=== PATIENT | female | born 1935 | race Caucasian/White ===

== ENCOUNTER 2016-08-17 16:27 | Emergency (ER) | payer MEDICARE, BC ==
[2016-08-17 16:41] VITALS: BP 127/87
[2016-08-17] MEDS ORDERED: Sodium Chloride 0.9% 500 ML IV ONE (16:59)
[2016-08-17] MEDS ORDERED: Ondansetron 4 MG/2 ML SDV IVPUSH ONE (16:59)
[2016-08-17] MEDS ORDERED: cefTRIAXone 1 GM in Sodium Chloride 0.9% 100 ML IV ONE (18:41)
[2016-08-17] MEDS ORDERED: LORazepam 0.5 MG Tab PO ONE (18:41)
--- NOTE | 2016-08-17 19:01 | EDM.PDOC ---
ED HPI RENAL/ - General Chief Complaint: Genitourinary Problem Stated Complaint: URINARY INFECTION WORSE Time Seen by Provider: 08/17/16 16:44 Source of Information: Reports: Patient, Family (Chidi), RN notes reviewed - History of Present Illness INITIAL COMMENTS - FREE TEXT/NARRATIVE: 80-year-old lady comes in with left lower abdominal and pelvic discomfort with some radiation to the left flank. she had onset of these symptoms 2 or 3 days ago. He has history of the left kidney stone with lithotripsy several weeks ago. She was told by the urologist that he got some of the stone but not "all of it" she was evaluated at [facility] yesterday and found to have UTI. She was started on Levaquin 750 mg daily with her first dose yesterday. She's had no fever or chills. She did have some mild nausea this afternoon but no vomiting. No chest pain or difficulty breathing. - Related Data Allergies/ADRs: Allergies Allergy/AdvReac Type Severity Reaction Status Date / Time Sulfa (Sulfonamide Allergy Cannot Verified 08/17/16 16:41 Antibiotics) Remember buspirone HCl [From BuSpar] AdvReac Mild Insomnia Verified 08/17/16 16:41 contrast dye Allergy Cannot Uncoded 08/17/16 16:41 Remember tape Allergy Cannot Uncoded 08/17/16 16:41 Remember Home Meds: Home Meds 5-Hydroxytryptophan [5-Htp] 2 cap PO DAILY 10/08/15 [History] Aspirin [Ecotrin] 325 mg PO DAILY 10/08/15 [History] Cholecalciferol (Vitamin D3) [Vitamin D] 2,000 units PO DAILY 10/08/15 [History] Denosumab [Prolia] 60 mg INJECT Q6M 10/08/15 [History] Levothyroxine 125 mcg PO DAILY 10/08/15 [History] Magnesium Hydroxide [Milk of Magnesia] 30 ml PO DAILY PRN 10/08/15 [History] Oscal 1,500 mg PO DAILY 10/08/15 [History] Sertraline HCl [Zoloft] 150 mg PO DAILY 10/08/15 [History] oxyCODONE HCl/Acetaminophen [oxyCODONE-Acetaminophen 5-325] 1 - 2 mg PO QID PRN 08/17/16 [History] Past Medical History Genitourinary History: Reports: Renal calculus Musculoskeletal History: Reports: Other (see below) Other Musculoskeletal History: kyphoplasty. 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 Psychiatric History: Reports: Anxiety, Depression Endocrine/Metabolic History: Reports: Hypothyroidism, Osteoporosis Dermatologic History: Reports: Eczema - Past Surgical History HEENT Surgical History: Reports: Cataract surgery GI Surgical History: Reports: Appendectomy Female Surgical History: Reports: Lithotripsy/ESWL, Tubal ligation Social & Family History - Tobacco Use Smoking Status *Q: Current Every Day Smoker Years of Tobacco use: 50 Packs/Tins Daily: 0.5 - Caffeine Use Caffeine Use: Reports: Coffee - Recreational Drug Use Recreational Drug Use: No - Living Situation & Occupation Living situation: Reports: Occupation: retired ED ROS GENERAL - Review of Systems Review Of Systems: See Below Constitutional: Denies: fever, chills, diaphoresis HEENT: Reports: No symptoms Respiratory: Denies: Shortness of Breath, Pleuritic Chest Pain Cardiovascular: Denies: Chest pain GI/Abdominal: Reports: Abdominal pain (Mild left-sided), Nausea (Gone). Denies : Vomiting : Reports: flank pain, frequency, urgency. Denies: dysuria Musculoskeletal: Reports: back pain (Primarily left flank) Skin: Reports: no symptoms Neurological: Reports: Dizziness (Mild) ED EXAM, RENAL/ - Physical Exam Exam: See Below General Appearance: alert, anxious (Mild), mild distress Eye Exam: bilateral eye: PERRL Throat/Mouth: Normal inspection, Normal oropharynx Head: No: facial swelling Neck: supple, full range of motion. No: lymphadenopathy (L), lymphadenopathy (R ) Respiratory/Chest: no respiratory distress, lungs clear, normal breath sounds Cardiovascular: regular rate, rhythm GI/Abdominal: tender (Very mild tenderness left lower abdomen). No: guarding, rebound Back Exam: No: CVA tenderness (L), CVA tenderness (R) Extremities: normal inspection, normal range of motion. No: pedal edema, leg pain Neurological: alert, oriented, no motor/sensory deficits Skin Exam: Warm, Dry, Normal color Course - Vital Signs Last Recorded V/S: Last Vital Signs Temp 96.4 F 08/17/16 16:35 Pulse 75 08/17/16 16:35 Resp 18 08/17/16 16:35 BP 127/87 05/06/17 16:35 Pulse Ox 98 08/17/16 16:35 - Orders/Labs/Meds Orders: Active Orders 24 hr Category Date Time Status CULTURE URINE [RM] Stat Lab 08/17/16 17:17 Received Labs: Laboratory Tests 08/17/16 08/17/16 08/17/16 Range/Units 17:09 17:09 17:09 WBC 5.30 (3.98-10.04) K/mm3 RBC 4.28 (3.98-5.22) M/mm3 Hgb 13.6 (11.2-15.7) gm/L Hct 40.8 (34.1-44.9) % MCV 95.3 H (79.4-94.8) fl MCH 31.8 (25.6-32.2) pg MCHC 33.3 (32.2-35.5) g/dl RDW Std Deviation 45.6 (36.4-46.3) fL Plt Count 254 (182-369) K/mm3 MPV 11.0 (9.4-12.3) fl Neut % (Auto) 60.9 (34.0-71.1) % Lymph % (Auto) 27.9 (19.3-51.7) % [place] % (Auto) 7.7 (4.7-12.5) % Eos % (Auto) 2.5 (0.7-5.8) Baso % (Auto) 0.8 (0.1-1.2) % Neut # (Auto) 3.23 (1.56-6.13) K/mm3 Lymph # (Auto) 1.48 (1.18-3.74) K/mm3 [place] # (Auto) 0.41 H (0.24-0.36) K/mm3 Eos # (Auto) 0.13 (0.04-0.36) K/mm3 Baso # (Auto) 0.04 (0.01-0.08) K/mm3 Sodium 139 (136-145) mEq/L Potassium 3.6 (3.5-5.1) mEq/L Chloride 106 (98-107) mEq/L Carbon Dioxide 24 (21-32) mEq/L Anion Gap 12.6 (5-15) BUN 12 (7-18) mg/dL Creatinine 0.9 (0.55-1.02) mg/dL Est Cr Clr Drug Dosing 44.28 mL/min Estimated GFR (MDRD) > 60 (>60) mL/min BUN/Creatinine Ratio 13.3 L (14-18) Glucose 106 (83-115) mg/dL Calcium 9.0 (8.5-10.1) mg/dL Total Bilirubin 0.3 (0.2-1.0) mg/dL AST 10 L (15-37) U/L ALT 17 (14-59) U/L Alkaline Phosphatase 79 (46-116) U/L C-Reactive Protein 1.0 (<1.0) mg/dL Total Protein 7.4 (6.4-8.2) g/dl Albumin 3.2 L (3.4-5.0) g/dl Globulin 4.2 gm/dL Albumin/Globulin Ratio 0.8 L (1-2) Urine Color (Yellow) Urine Appearance (Clear) Urine pH (5.0-8.0) Ur Specific [place] (1.005-1.030) Urine Protein (Negative) Urine Glucose (UA) (Negative) Urine Ketones (Negative) Urine Occult Blood (Negative) Urine Nitrite (Negative) Urine Bilirubin (Negative) Urine Urobilinogen (0.2-1.0) Ur Leukocyte Esterase (Negative) Urine RBC (0-5) /hpf Urine WBC (0-5) /hpf Ur Epithelial Cells Ur Squamous Epith Cells (0-5) /hpf Urine Bacteria (FEW) /hpf Urine Mucus (FEW) /hpf 08/17/16 Range/Units 17:17 WBC (3.98-10.04) K/mm3 RBC (3.98-5.22) M/mm3 Hgb (11.2-15.7) gm/L Hct (34.1-44.9) % MCV (79.4-94.8) fl MCH (25.6-32.2) pg MCHC (32.2-35.5) g/dl RDW Std Deviation (36.4-46.3) fL Plt Count (182-369) K/mm3 MPV (9.4-12.3) fl Neut % (Auto) (34.0-71.1) % Lymph % (Auto) (19.3-51.7) % [place] % (Auto) (4.7-12.5) % Eos % (Auto) (0.7-5.8) Baso % (Auto) (0.1-1.2) % Neut # (Auto) (1.56-6.13) K/mm3 Lymph # (Auto) (1.18-3.74) K/mm3 [place] # (Auto) (0.24-0.36) K/mm3 Eos # (Auto) (0.04-0.36) K/mm3 Baso # (Auto) (0.01-0.08) K/mm3 Sodium (136-145) mEq/L Potassium (3.5-5.1) mEq/L Chloride (98-107) mEq/L Carbon Dioxide (21-32) mEq/L Anion Gap (5-15) BUN (7-18) mg/dL Creatinine (0.55-1.02) mg/dL Est Cr Clr Drug Dosing mL/min Estimated GFR (MDRD) (>60) mL/min BUN/Creatinine Ratio (14-18) Glucose (83-115) mg/dL Calcium (8.5-10.1) mg/dL Total Bilirubin (0.2-1.0) mg/dL AST (15-37) U/L ALT (14-59) U/L Alkaline Phosphatase (46-116) U/L C-Reactive Protein (<1.0) mg/dL Total Protein (6.4-8.2) g/dl Albumin (3.4-5.0) g/dl Globulin gm/dL Albumin/Globulin Ratio (1-2) Urine Color Light yellow (Yellow) Urine Appearance Slt cloudy H (Clear) Urine pH 6.5 (5.0-8.0) Ur Specific [place] 1.010 (1.005-1.030) Urine Protein 1+ H (Negative) Urine Glucose (UA) Negative (Negative) Urine Ketones Negative (Negative) Urine Occult Blood 3+ H (Negative) Urine Nitrite Negative (Negative) Urine Bilirubin Negative (Negative) Urine Urobilinogen 0.2 (0.2-1.0) Ur Leukocyte Esterase 2+ H (Negative) Urine RBC 10-20 H (0-5) /hpf Urine WBC 30-40 H (0-5) /hpf Ur Epithelial Cells Not Reportable Ur Squamous Epith Cells 0-5 (0-5) /hpf Urine Bacteria Moderate H (FEW) /hpf Urine Mucus Few (FEW) /hpf Meds: Medications Discontinued Medications Generic Name Dose Route Start Last Admin Trade Name Keli PRN Reason Stop Dose Admin Sodium Chloride 500 mls @ 999 mls/hr 08/17/16 16:59 08/17/16 17:16 Normal Saline IV 08/17/16 17:29 999 mls/hr .BOLUS ONE Administration Ceftriaxone Sodium 1 gm/ 100 mls @ 200 mls/hr 08/17/16 18:41 08/17/16 18:59 Sodium Chloride IV 08/17/16 19:10 200 mls/hr ONETIME ONE Administration Lorazepam 0.5 mg 08/17/16 18:41 08/17/16 19:01 Ativan PO 08/17/16 18:42 0.5 mg ONETIME ONE Administration Ondansetron HCl 4 mg 08/17/16 16:59 08/17/16 17:18 Zofran IVPUSH 08/17/16 17:00 4 mg ONETIME ONE Administration - Re-Assessments/Exams Free Text/Narrative Re-Assessment/Exam: 08/17/16 18:59 White blood count and C-reactive protein are normal, chemistries are good. UA does show evidence for UTI to did check with our lab and they did not have a urine culture going so [place] is doing the urine culture within their system. I did order a urine culture today as well just to make sure we have that covered. We have given some IV fluid. The given Zofran and with that patient is resting more comfortably. She continues to be somewhat anxious and restless. She has been on Ativan for quite some time in the past and recently tapered off. I am going to give her 0.5 mg dose now to try help her better relax. We' re going to give her a dose of Rocephin 1 g IV now. She then should be stable for discharge home. She has a followup clinic appointment scheduled for Friday. Departure - Departure Time of Disposition: 19:30 Disposition: Home, Self-Care 01 Condition: fair Clinical Impression: UTI, Urinary tract infectious disease Referrals: Loida Williamson, [employer] [Primary Care Provider] - Forms: ED Department Discharge Additional Instructions: Drink plenty of water to maintain hydration, continue Levaquin antibiotic as prescribed once daily, see Dr. Williamson this next Friday as planned. Continue other medications as prescribed. Return to ED as needed if symptoms worsening in any way - My Orders Last 24 Hours: My Active Orders 08/17/16 17:17 CULTURE URINE [RM] Stat - Assessment/Plan Last 24 Hours: My Active Orders 08/17/16 17:17 CULTURE URINE [RM] Stat
== END 2016-08-17 19:50 | disposition home or self-care (01) ==
LOC: JD.ED 16:27
DX: N39.0 Urinary tract infection, site not specified (principal); F41.9 Anxiety disorder, unspecified; F32.9 Major depressive disorder, single episode, unspecified; E03.9 Hypothyroidism, unspecified; F17.210 Nicotine dependence, cigarettes, uncomplicated; Z88.2 Allergy status to sulfonamides; Z88.8 Allergy status to other drugs, medicaments and biological substances; Z79.82 Long term (current) use of aspirin; Z79.899 Other long term (current) drug therapy; Z90.49 Acquired absence of other specified parts of digestive tract
CPT/HCPCS: 36415; 80053; 81001; 85025; 86140; 87086; 96361; 96365; 96375; 99284; A9270; J0696; J2405; J7030; J7040

== ENCOUNTER 2016-09-18 06:55 | Day surgery (SDC) | payer MEDICARE, BC ==
--- NOTE | 2016-09-18 05:43 | PCM.HP ---
H&P History of Present Illness - General Date of Service: 09/18/16 Admit Problem/Dx: asymptomatic cholelithiasis, chronic constipation, hx of hemorrhoids, chronic LUQ/flank pain, no prior hx of colonoscopy, hx of: nausea, vomiting, lower abdominal pain, hx of abdominal distension Source of Information: Patient History Limitations: Reports: No Limitations - History of Present Illness Initial Comments - Free Text/Narative: The patient is a 80-year-old female initially referred by Dr. Luci Williamson for cholelithiasis ill defined signs and symptoms. I last saw the patient on 07/03/16. She reports no major changes to her health since that visit, with the exception of below healthcare visits. she did complete the prep as prescribed. She reports she had a liquid brown stool this am. She denies abdominal pain this am. Feels it is improved. No diarrhea post multiple antibiotic courses. Still has LUQ pain. Continues to deny RUQ pain. Feels bloating may be better. No reflux/heartburn. Nausea and vomiting only once since last visit. Hx of fatigue. Reports hemorrhoids are still bothering her, difficulty sitting and they do itch. She has since had urology and cardiology evaluations. 07/11 Cardiology visit-Dr. Morrison did note on "The patient's symptoms are likely related to hypothyroidism; however, she has significant risk factors for coronary artery disease to include hypertension, his age, dyslipidemia and on elevated calcium score. I'll obtain a nuclear stress test to evaluate for possible ischemic etiology of her symptoms.Lexiscan nuclear stress test. One year follow up advised. 07/31/16 Left extracorporeal shockwave lithotripsy, Cystoscopy and left retrograde pyelogram and stent insertion 08/20/16 Patient did have a preoperative evaluation with Dr. Williamson. Dr. Williamson did comment, "Please note that patient has been advised to have a nuclear stress test by cardiology- she has failed to do this.She is currently pain free and there is no indication by exam or history of any acute change in coronary status."Her EKG was repeated on 08/20. She had a borderline ECG, sinus bradycardia, borderline prolonged NM interval, left axis deviation, abnormal R wave progression, early transition 08/21/16 Left Ureteroscopy Laser Lithotripsy and stent placement. She did have with surgeries above without complication 09/04/16 Cystoscopy with left uretral stent removal She has had multiple UTIs since July. Early July did grow out Staphylococcus epidermidis, she was treated with Vancomycin. 08/16 was treated with Levaquin, culture grew out mixed Microflora. Was given Cipro post stent removal on 09/04 She was initially referred for cholelithiasis. She did not have RUQ pain, s/s of acute cholecystitis or biliary obstruction. She was also evaluated on 06/05, her CBC was unremarkable. BMP and hepatic function panel showed no electrolyte abnormalities. Bilirubin was normal. Liver enzymes were normal. Protein was slightly elevated at 8.4. She had pending evaluations with cardiology and urology. 07/03/16- CBC, Hepatic function and metabolic panel were normal. Her abdominal xray was also normal, she had a normal gas pattern, no increased stool. She should start Miralax daily. Use Senna-S as needed and utilize the hemorrhoid care methods discussed in office. Increase fluid and fiber daily. May use Gas X for bloating. PTH and vitamin D were normal, as well. Prior radiology evaluations: 05/2016: Pet scan: IMPRESSION: Stable pulmonary nodules since 2012 should be benign given its size and lack of FDG uptake. 05/30/16 CT of abdomen: 1. Multiple nonobstructing left-sided renal parenchymal calculi. The largest measures up to 1.2 cm in the left upper pole. There is associated underlying renal parenchymal scarring. 2. No evidence of ureteral calculi. 3. Cholelithiasis. 4. 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 06/2016 CTA: IMPRESSION: Mild dilatation of the abdominal aorta just distal to the takeoff of the renal arteries. 07/03/16-Abdominal ultrasoundFINDINGS: 2.9-cm simple left renal cyst. The spleen , kidneys, pancreas, and liver are otherwise normal. There is appropriate caliber to the IVC and aorta. Gallbladder has normal wall thickness with cholelithiasis. Portal and hepatic veins are patent with antegrade flow on color flow Doppler. The common bile duct is seen with appropriate caliber.IMPRESSION: Cholelithiasis with no sonographic evidence of cholecystitis.~ - Related Data Allergies/Adverse Reactions: Allergies Allergy/AdvReac Type Severity Reaction Status Date / Time adhesive tape Allergy Cannot Verified 09/18/16 07:27 Remember Iodinated Contrast Media - Allergy Cannot Verified 09/18/16 07:27 Oral and Remember Sulfa (Sulfonamide Allergy Cannot Verified 09/18/16 07:27 Antibiotics) Remember buspirone HCl [From BuSpar] AdvReac Mild Insomnia Verified 09/18/16 07:27 Home Medications: Home Meds 5-Hydroxytryptophan [5-Htp] 100 mg PO DAILY 10/08/15 [History] Aspirin [Ecotrin] 325 mg PO DAILY 10/08/15 [History] Denosumab [Prolia] 60 mg INJECT Q6M 10/08/15 [History] Levothyroxine 125 mcg PO DAILY 10/08/15 [History] Magnesium Hydroxide [Milk of Magnesia] 30 ml PO DAILY PRN 10/08/15 [History] Sertraline HCl [Zoloft] 150 mg PO DAILY 10/08/15 [History] Calcium Carbonate 500 mg PO DAILY 09/17/16 [History] Cetirizine [ZyrTEC] 10 mg PO ASDIRECTED 09/17/16 [History] Cholecalciferol (Vitamin D3) [Vitamin D3] 2,000 units PO DAILY 09/17/16 [History ] Estradiol [Estrace 0.01% Vaginal Crm] 1 applic VAG ASDIRECTED 09/17/16 [History] LORazepam [Ativan] 0.5 mg PO ASDIRECTED 09/17/16 [History] Lidocaine 2% [Xylocaine 2% Jelly] 1 applic TOP ASDIRECTED 09/17/16 [History] Pramoxine HCl [Sarna Sensitive] 1 applic TOP ASDIRECTED 09/17/16 [History] Sennosides/Docusate Sodium [Senna-Docusate Sodium] 1 - 2 tab PO ASDIRECTED 09/17 [History] Triamcinolone Acetonide [Triamcinolone Acetonide 0.1% Crm] 1 applic TOP ASDIRECTED 09/17/16 [History] Past Medical History HEENT History: Reports: Impaired Vision, Other (See Below) Other HEENT History: corneal ulcer, wears glasses Cardiovascular History: Reports: High Cholesterol, Hypertension, Other (See Below) Other Cardiovascular History: splenic artery anurysm Respiratory History: Reports: Other (See Below) Other Respiratory History: pulmonary nodules Gastrointestinal History: Reports: Cholelithiasis, Chronic Constipation, Hemorrhoids, Other (See Below) Other Gastrointestinal History: LUQ pain, nausea/vomiting, lower abdominal pain Genitourinary History: Reports: Renal Calculus, Urinary Incontinence 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 Musculoskeletal History: Reports: Back Pain, Chronic, Fibromyalgia, Osteoporosis , Other (See Below) Other Musculoskeletal History: degnerative joint disease Neurological History: Reports: None Psychiatric History: Reports: Anxiety, Depression, Other (See Below) Other Psychiatric History: fatigue Endocrine/Metabolic History: Reports: Hypothyroidism, Osteoporosis Hematologic History: Reports: Other (See Below) Other Hematologic History: pancytopenia Immunologic History: Reports: None Oncologic (Cancer) History: Reports: None Dermatologic History: Reports: Eczema, Other (See Below) Other Dermatologic History: atypical nevus - Past Surgical History HEENT Surgical History: Reports: Cataract Surgery GI Surgical History: Reports: Appendectomy, Colonoscopy Female Surgical History: Reports: Hysterectomy, Lithotripsy/ESWL, Tubal Ligation Endocrine Surgical History: Reports: Parathyroidectomy Musculoskeletal Surgical History: Reports: Other (See Below) Other Musculoskeletal Surgeries/Procedures:: kyphoplasty Social & Family History - Tobacco Use Smoking Status *Q: Current Every Day Smoker Years of Tobacco use: 50 Packs/Tins Daily: 0.5 - Caffeine Use Caffeine Use: Reports: Coffee - Recreational Drug Use Recreational Drug Use: No - Living Situation & Occupation Living situation: Reports: Occupation: Retired H&P Review of Systems - Review of Systems: Review Of Systems: See Below Free Text/Narrative: Denies any exertional chest pain. Has exertional shortness of breath. No history of any easy bleeding or bruising. No personal or familial history of clotting or bleeding disorders. No history of anesthetic complications. No history of familial anesthetic complications. Denies presence/history of chest pain, palpitations, lower extremity edema, dyspnea, orthopnea, claudication, wheezing, obstructive sleep apnea, chronic cough. Had a cough x 3 weeks, when I last saw her. Rare cough now. Is feeling better. No history of blood thinner use. History of anemia. No history of seizure or stroke. EKG 2007: Normal sinus rhythm Patient has been referred to cardiology for elevated CT heart score. CT heart score: FINDINGS: Patient gets a score of 157 by the Agatston method. That would put the patient at approximately the 60th percentile for asymptomatic females. 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 Patient has been referred to pulmonology for abnormal CT lung screening , hx of smoking. PET scan IMPRESSION: Stable pulmonary nodules since 2013 should be benign given its size and lack of FDG uptake Patient has been referred to urology for left renal calculi Patient seen [facility] for splenic artery aneurysm. Dr. Nunez noted a " calcified splenic artery aneurysm measuring 1.5 cm. It is not large enough to require any therapy, especially in someone of her age since she is past childbearing age. As far as her fatigue, I think some of that could be caused by her chronic Ativan use. I recommended that she taper that off with the help of Dr. Williamson. Her chronic aches may be related to another parathyroid adenoma as that is one of the symptoms. I recommend she get her parathyroid level checked. We will see her back in [place] in [address] to follow her splenic artery aneurysm" Also commented, " multiple complaints including fatigue, kidney stones, splenic artery aneurysm, and gallstones. I told her we were here to evaluate her splenic artery aneurysm today. She has not had any pain related to that. She has chronic aches and pains in her left back. This is not related to her splenic artery aneurysm. She does have a left kidney stone that is large. This may or may not be contributing to her left back flank pain. She also is obsessed with her chronic tiredness. She is on Ativan around the clock. I suggested that, that may be why she is so tired and the fact that she does not do any exercise. She does have a history of fibromyalgia as well. " All other systems reviewed and were negative except as per history of present illness General: Reports: No Symptoms. Denies: Fever, Chills HEENT: Reports: No Symptoms Pulmonary: Reports: No Symptoms. Denies: Shortness of Breath, Cough Cardiovascular: Reports: No Symptoms. Denies: Chest Pain, Palpitations, Edema Gastrointestinal: Reports: Other (see hpi) Genitourinary: Reports: No Symptoms Musculoskeletal: Reports: No Symptoms Skin: Reports: No Symptoms Psychiatric: Reports: No Symptoms Neurological: Reports: No Symptoms Hematologic/Lymphatic: Reports: No Symptoms Immunologic: Reports: No Symptoms Exam - Exam Exam: See Below - Vital Signs Weight: 55.338 kg - Exam General: Alert, Oriented HEENT: Conjunctiva Clear. No: Scleral Icterus Lungs: Clear to Auscultation, Normal Respiratory Effort Cardiovascular: Regular Rate, Regular Rhythm, Normal S1, Normal S2. No: Systolic Murmur, Diastolic Murmur Abdomen: Soft. No: Distention, Tenderness Back Exam: Normal Inspection Extremities: Normal Inspection. No: Clubbing, Cyanosis, Calf Tenderness, Edema Skin: Warm, Dry, Intact Neuro Extensive - Mental Status: Alert, Oriented x3, Normal Mood/Affect, Normal Cognition Psychiatric: Alert, Normal Affect, Normal Mood *Q Meaningful Use (ADM) - VTE *Q VTE Criteria *Q: - Stroke *Q Stroke Criteria *Q: - AMI *Q AMI Criteria *Q: - Problem List (1) Chronic constipation SNOMED Code(s): 857426022 ICD Code: K59.09 - OTHER CONSTIPATION Status: Acute Current Visit: Yes (2) Hemorrhoids SNOMED Code(s): 04909345 ICD Code: K64.9 - UNSPECIFIED HEMORRHOIDS Status: Acute Current Visit: Yes (3) Chronic LUQ pain SNOMED Code(s): 275796897 ICD Code: R10.12 - LEFT UPPER QUADRANT PAIN; G89.29 - OTHER CHRONIC PAIN Status: Acute Current Visit: Yes (4) Nausea & vomiting SNOMED Code(s): 87465391 ICD Code: R11.2 - NAUSEA WITH VOMITING, UNSPECIFIED Status: Acute Current Visit: Yes (5) Lower abdominal pain SNOMED Code(s): 46060596 ICD Code: R10.30 - LOWER ABDOMINAL PAIN, UNSPECIFIED Status: Acute Current Visit: Yes (6) Bloating SNOMED Code(s): 185067661 ICD Code: R14.0 - ABDOMINAL DISTENSION (GASEOUS) Status: Acute Current Visit: Yes Problem List Initiated/Reviewed/Updated: Yes Orders Last 24hrs: Active Orders 24 hr Category Date Time Status Peripheral IV Care [RC] . DIRECTED Care 09/18/16 07:00 Active Verify Patient Consent Obtain [RC] ASDIRECTED Care 09/18/16 07:00 Active Lactated Ringers [Ringers, Lactated] 1,000 ml Med 09/18/16 07:00 Active IV ASDIRECTED Lidocaine 1%/Sod Bicarbonate [Buffered Lidocaine 1% in Med 09/18/16 07:00 Active NS 8.4%] 0.25 ml .XX ONETIME PRN Sodium Chloride 0.9% [Saline Flush] Med 09/18/16 07:00 Active 10 ml FLUSH ASDIRECTED PRN Medication Administration Instruction [OM.PC] Routine Oth 09/18/16 07:00 Ordered Peripheral IV Insertion Adult [OM.PC] Routine Oth 09/18/16 07:00 Ordered Medication Orders Lactated Ringer's (Ringers, Lactated) 1,000 mls @ 125 mls/hr IV ASDIRECTED [place] Stop: 09/18/16 23:00 Lidocaine/Sodium Bicarbonate (Buffered Lidocaine 1% In Ns 8.4%) 0.25 ml .XX ONETIME PRN PRN Reason: Prior to IV Start Stop: 09/18/16 18:00 Sodium Chloride (Saline Flush) 10 ml FLUSH ASDIRECTED PRN PRN Reason: Keep Vein Open Stop: 09/18/16 18:00 Assessment/Plan Comment:: 80yr female with asymptomatic cholelithiasis, chronic constipation, hx of hemorrhoids, chronic LUQ/flank pain, no prior hx of colonoscopy, nausea, vomiting, lower abdominal pain, slight abdominal distension, need for diagnostic EGD and diagnostic colonoscopy with possible hemorrhoidal banding. PLAN: We discussed performing a diagnostic EGD and diagnostic colonoscopy with possible hemorrhoidal banding. We discussed the risks and benefits of colonoscopy and EGD including pain, bleeding, need for additional procedures, damage to surrounding structures including colonic, esophageal or small bowel perforation risk of less than 1%, and risks of anesthesia. Informed consent was obtained. Patient verbalized and understanding and agreed with care plan. This patient was evaluated with Dr. Alvarez. Plan formulated by Dr. Shireen Alvarez. LAN Armenta-Danika scribing for Dr. Shireen Alvarez. General Surgery Department [facility]
[2016-09-18] MEDS ORDERED: Lactated Ringers 1,000 ML IV SCH (07:00)
[2016-09-18] MEDS ORDERED: Lidocaine 1%/Sod Bicarbonate in NS 8.4% 1 ML Syringe PRN (07:00)
[2016-09-18] MEDS ORDERED: Sodium Chloride 0.9% 10 ML Syringe FLUSH PRN (07:00)
--- NOTE | 2016-09-18 07:24 | PCM.PREANE ---
Preanesthetic Assessment - Procedure Proposed Procedure: EGD and Colonoscopy - Anesthesia/Transfusion/Family Hx Anesthesia History: Prior Anesthesia Without Reaction Family History of Anesthesia Reaction: No Transfusion History: No Prior Transfusion(s) Intubation History: Unknown - Review of Systems General: No Symptoms Pulmonary: No Symptoms Cardiovascular: No Symptoms Gastrointestinal: Abdominal pain, Constipation Neurological: Other (headaches with fatigue ) Other: Reports: Thyroid Problems - Physical Assessment NPO Status Date: 09/17/16 NPO Status Time: 12:00 Pulse: 66 O2 Sat by Pulse Oximetry: 96 Respiratory Rate: 16 Blood Pressure: 160/92 Temperature: 37.2 C Height: 1.7 m Weight: 55.338 kg ASA Class: 3 Mental Status: Alert & Oriented x3 Dentition: Reports: Dentures (upper and lowers ) Thyro-Mental Finger Breadths: 2 Mouth Opening Finger Breadths: 5 ROM/Head Extension: Full Lungs: Clear to auscultation, Normal respiratory effort Cardiovascular: Regular Rate, Regular Rhythm - Allergies Allergies/Adverse Reactions: Allergies Allergy/AdvReac Type Severity Reaction Status Date / Time adhesive tape Allergy Cannot Verified 09/18/16 07:27 Remember Iodinated Contrast Media - Allergy Cannot Verified 09/18/16 07:27 Oral and Remember Sulfa (Sulfonamide Allergy Cannot Verified 09/18/16 07:27 Antibiotics) Remember buspirone HCl [From BuSpar] AdvReac Mild Insomnia Verified 09/18/16 07:27 - Blood Blood Available: No - Acknowledgements Anesthesia Type Planned: MAC Pt an Appropriate Candidate for the Planned Anesthesia: Yes Alternatives and Risks of Anesthesia Discussed w Pt/Guardian: Yes Pt/Guardian Understands and Agrees with Anesthesia Plan: Yes PreAnesthesia Questionnaire HEENT History: Reports: Impaired Vision, Other (See Below) Other HEENT History: corneal ulcer, wears glasses Cardiovascular History: Reports: High Cholesterol, Hypertension, Other (See Below) Other Cardiovascular History: splenic artery anurysm Respiratory History: Reports: Other (See Below) Other Respiratory History: pulmonary nodules Gastrointestinal History: Reports: Cholelithiasis, Chronic Constipation, Hemorrhoids, Other (See Below) Other Gastrointestinal History: LUQ pain, nausea/vomiting, lower abdominal pain Genitourinary History: Reports: Renal Calculus, Urinary Incontinence 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 Musculoskeletal History: Reports: Back Pain, Chronic, Fibromyalgia, Osteoporosis , Other (See Below) Other Musculoskeletal History: degnerative joint disease Neurological History: Reports: None Psychiatric History: Reports: Anxiety, Depression, Other (See Below) Other Psychiatric History: fatigue Endocrine/Metabolic History: Reports: Hypothyroidism, Osteoporosis Hematologic History: Reports: Other (See Below) Other Hematologic History: pancytopenia Immunologic History: Reports: None Oncologic (Cancer) History: Reports: None Dermatologic History: Reports: Eczema, Other (See Below) Other Dermatologic History: atypical nevus - Past Surgical History HEENT Surgical History: Reports: Cataract Surgery GI Surgical History: Reports: Appendectomy, Colonoscopy Female Surgical History: Reports: Hysterectomy, Lithotripsy/ESWL, Tubal Ligation Endocrine Surgical History: Reports: Parathyroidectomy Musculoskeletal Surgical History: Reports: Other (See Below) Other Musculoskeletal Surgeries/Procedures:: kyphoplasty - SUBSTANCE USE Smoking Status *Q: Current Every Day Smoker Tobacco Use Within Last Twelve Months: Cigarettes (1/2 pack/day) Recreational Drug Use History: No - HOME MEDS Home Medications: Home Meds 5-Hydroxytryptophan [5-Htp] 100 mg PO DAILY 10/08/15 [History] Aspirin [Ecotrin] 325 mg PO DAILY 10/08/15 [History] Denosumab [Prolia] 60 mg INJECT Q6M 10/08/15 [History] Levothyroxine 125 mcg PO DAILY 10/08/15 [History] Magnesium Hydroxide [Milk of Magnesia] 30 ml PO DAILY PRN 10/08/15 [History] Sertraline HCl [Zoloft] 150 mg PO DAILY 10/08/15 [History] Calcium Carbonate 500 mg PO DAILY 09/17/16 [History] Cetirizine [ZyrTEC] 10 mg PO ASDIRECTED 09/17/16 [History] Cholecalciferol (Vitamin D3) [Vitamin D3] 2,000 units PO DAILY 09/17/16 [History ] Estradiol [Estrace 0.01% Vaginal Crm] 1 applic VAG ASDIRECTED 09/17/16 [History] LORazepam [Ativan] 0.5 mg PO ASDIRECTED 09/17/16 [History] Lidocaine 2% [Xylocaine 2% Jelly] 1 applic TOP ASDIRECTED 09/17/16 [History] Pramoxine HCl [Sarna Sensitive] 1 applic TOP ASDIRECTED 09/17/16 [History] Sennosides/Docusate Sodium [Senna-Docusate Sodium] 1 - 2 tab PO ASDIRECTED 09/17 [History] Triamcinolone Acetonide [Triamcinolone Acetonide 0.1% Crm] 1 applic TOP ASDIRECTED 09/17/16 [History] - CURRENT (IN HOUSE) MEDS Current Meds: Current Medications Lactated Ringer's (Ringers, Lactated) 1,000 mls @ 125 mls/hr IV ASDIRECTED [place] Stop: 09/18/16 23:00 Lidocaine/Sodium Bicarbonate (Buffered Lidocaine 1% In Ns 8.4%) 0.25 ml .XX ONETIME PRN PRN Reason: Prior to IV Start Stop: 09/18/16 18:00 Sodium Chloride (Saline Flush) 10 ml FLUSH ASDIRECTED PRN PRN Reason: Keep Vein Open Stop: 09/18/16 18:00 Discontinued Medications Propofol (Diprivan 20 Ml) Confirm Administered Dose 400 mg .ROUTE .STK-MED ONE Stop: 09/18/16 07:36
[2016-09-18] MEDS ORDERED: Propofol 200 MG/20 ML SDV ONE (07:35)
[2016-09-18] MEDS ORDERED: Lidocaine 1% 2 ML ONE (07:36)
--- NOTE | 2016-09-18 07:49 | PCM.OPNOTE ---
- General Post-Op/Procedure Note Date of Surgery/Procedure: 09/18/16 Operative Procedure(s): Diagnostic EGD with cold forceps biopsy, diagnostic colonoscopy to 90 cm, hemorrhoidal banding Pre Op Diagnosis: Left lower and left upper quadrant abdominal pain, nausea, vomiting, chronic constipation, hemorrhoidal concerns Post-Op Diagnosis: Gastritis, esophagitis, tortuous colon, internal and external hemorrhoids (internal grade 2) Anesthesia Technique: MAC Primary Surgeon: Shireen Alvarez Anesthesia Provider: Mandie Holly Pathology: 1. Small bowel biopsy 2. Antral biopsy 3. Distal esophageal biopsy Complications: None Condition: Good Free Text/Narrative:: FLUIDS: 900 mL crystalloid. INDICATION FOR PROCEDURE: The patient is a 80-year-old woman who was referred to me by Dr. Luci Williamson for evaluation for left lower quadrant abdominal pain, nausea, vomiting, chronic constipation, hemorrhoidal concerns. The patient has never had a colonoscopy. Performing a colonoscopy and EGD and the associated risks of the procedures had been discussed with the patient. The patient found these risks acceptable and agreed to proceed. DESCRIPTION OF PROCEDURE: The patient was taken to the operating room and placed in the left lateral decubitus position. After induction of adequate sedation, a bite block was placed. A standard Olympus gastroscope was inserted into the oropharynx and guided down the esophagus without difficulty. The gastroesophageal junction was appreciated at 39 cm from the teeth. There was no evidence of stricture or esophageal ulcerations. The scope was advanced into the stomach, and there was diffuse mild gastritis. The scope was passed into the proximal jejunum and the duodenum which were unremarkable. There were no petechiae or ulcerations. The proximal jejunum was grossly normal in appearance. Multiple cold forceps biopsies were obtained of the proximal jejunum and duodenum. The scope was withdrawn into the antrum, and additional cold forceps biopsies were obtained. The remainder of the gastric body was examined, and there were no other abnormalities. The scope was retroflexed, and there was no evidence of hiatal hernia. The scope was straightened and withdrawn to the GE junction. Additional cold forceps biopsies were obtained of the distal esophagus. The scope was withdrawn through the remainder of the esophagus and no further abnormalities were noted. The posterior oropharynx was grossly normal in appearance. The scope was fully withdrawn and attention was then turned to the colonoscopy. A digital rectal exam was performed which demonstrated mildly enlarged external hemorrhoids. A pediatric Olympus colonoscope was inserted into the rectum and guided under direct visualization. Counterpressure was utilized, the patient was also placed into a supine position, however due to the tortuosity of the colon, examination was only completed to 90 cm from the anal verge. The scope was then slowly withdrawn through the colon. The quality of the prep was good. There was no evidence of angiodysplasias, diverticulum or mass lesions. The scope was withdrawn into the rectum and retroflexed. There were grade 2 internal hemorrhoids. The scope was straightened, the colon was desufflated, and the scope was withdrawn. Hemorrhoidal banding using a short shot device was performed on all 3 hemorrhoidal columns. The patient was awakened from sedation and transferred to the recovery room in stable condition having tolerated the procedure well. POSTOPERATIVE PLAN: I discussed with the patient's my intraoperative findings and recommendations. The patient will follow up in approximately 7- 10 days to discuss pathology and how their symptoms are progressing. The patient is to start taking a PPI daily. She has been encouraged to quit smoking immediately. I have asked the patient to follow a GERD\gastritis diet. Due to her incomplete colonoscopy a repeat colonoscopy should be attempted in 1 year. The patient is to call with any worsening of symptoms or questions prior to the appointment.
--- NOTE | 2016-09-18 08:56 | PCM48HPAN ---
Post Anesthesia Note - EVALUATION WITHIN 48HRS OF ANESTHETIC Vital Signs in Normal Range: Yes Patient Participated in Evaluation: Yes Respiratory Function Stable: Yes Airway Patent: Yes Cardiovascular Function Stable: Yes Hydration Status Stable: Yes Pain Control Satisfactory: Yes Nausea and Vomiting Control Satisfactory: Yes Mental Status Recovered: Yes
[2016-09-18] MEDS: fentaNYL 100 MCG/2 ML SDV IVPUSH PRN ×3 (09:12→09:45)
[2016-09-18 11:29] VITALS: BP 160/96
[2016-09-18] MEDS ORDERED: Lactated Ringers 1,000 ML ONE (11:44)
== END 2016-09-18 10:25 | disposition home or self-care (01) ==
LOC: JD.SDS 06:55
PROVIDERS: ATTEND Surgery
DX: K29.50 Unspecified chronic gastritis without bleeding (principal); K29.80 Duodenitis without bleeding; B96.81 Helicobacter pylori [H. pylori] as the cause of diseases classified elsewhere; R11.2 Nausea with vomiting, unspecified; K63.89 Other specified diseases of intestine; R10.32 Left lower quadrant pain; K59.09 Other constipation; K64.4 Residual hemorrhoidal skin tags; K64.1 Second degree hemorrhoids
CPT/HCPCS: 43239; 45378; 88305; J3010; J7120; 00902; J2704

== ENCOUNTER 2017-06-05 14:11 | Emergency (ER) | payer MEDICARE, BC ==
[2017-06-05 14:37] VITALS: BP 139/105
--- NOTE | 2017-06-05 15:36 | EDM.PDOC ---
ED HPI GENERAL MEDICAL PROBLEM - General Chief Complaint: Gastrointestinal Problem Stated Complaint: CONSTIPATION/LETHARGIC Time Seen by Provider: 06/05/17 14:58 Source of Information: Reports: Patient, Family () History Limitations: Reports: No Limitations - History of Present Illness INITIAL COMMENTS - FREE TEXT/NARRATIVE: The patient states that she has been feeling weak, tired, and fatigue, waxing and waning for the past 2-3 years. She states that she has a AAA that is imaged annually, and that she underwent her annual CT angiogram yesterday, 06/04/2017. She states that she feels worse after the CT and grandma and is concerned that her worsening symptoms are related to the iodinated contrast that she receives, although she has not previously had an adverse reaction to iodinated contrast. The patient denies having any new symptoms, such as rash, dyspnea, or difficulty swallowing. At present, her only complaint other than fatigue is constipation, which is also chronic. The patient's PCP was Geno Williamson, but is now Dr. Avila. Her Psychologist is Ubaldo Alejo. Prior workup for her fatigue has included blood work, a stress test, a MRI of her back, and urine tests, all of which have been negative. The patient's depression and anxiety are currently being treated with trazodone and Restoril per Ubaldo Alejo. - Related Data Allergies Allergy/AdvReac Type Severity Reaction Status Date / Time adhesive tape Allergy Cannot Verified 06/05/17 14:31 Remember Sulfa (Sulfonamide Allergy Cannot Verified 06/05/17 14:31 Antibiotics) Remember buspirone HCl [From BuSpar] AdvReac Mild Insomnia Verified 06/05/17 14:31 Home Meds: Home Meds Aspirin [Ecotrin] 325 mg PO DAILY 10/08/15 [History] Denosumab [Prolia] 60 mg INJECT Q6M 10/08/15 [History] Levothyroxine 125 mcg PO DAILY 10/08/15 [History] Magnesium Hydroxide [Milk of Magnesia] 30 ml PO DAILY PRN 10/08/15 [History] Calcium Carbonate 1,500 mg PO DAILY 09/17/16 [History] Cetirizine [ZyrTEC] 10 mg PO ASDIRECTED PRN 09/17/16 [History] Cholecalciferol (Vitamin D3) [Vitamin D3] 3,000 units PO DAILY 09/17/16 [History ] Estradiol [Estrace 0.01% Vaginal Crm] 1 applic VAG ASDIRECTED 09/17/16 [History] Lidocaine 2% [Xylocaine 2% Jelly] 1 applic TOP ASDIRECTED 09/17/16 [History] Pramoxine HCl [Sarna Sensitive] 1 applic TOP ASDIRECTED PRN 09/17/16 [History] Sennosides/Docusate Sodium [Senna-Docusate Sodium] 2 tab PO BEDTIME 09/17/16 [ History] Triamcinolone Acetonide [Triamcinolone Acetonide 0.1% Crm] 1 applic TOP ASDIRECTED 09/17/16 [History] Lactobacillus Acidophilus [Probiotic] 1 each PO DAILY #90 capsule 09/18/16 [Rx] Hydrocortisone Acetate [Anusol-Hc] 25 mg RC ASDIRECTED 06/05/17 [History] Losartan [Cozaar] 25 mg PO DAILY 06/05/17 [History] Polyethylene Glycol 3350 [MiraLAX] 17 gm PO DAILY PRN 06/05/17 [History] Rectal Rocket 1 dose RECTAL ASDIRECTED PRN 06/05/17 [History] Temazepam [Restoril] 15 mg PO BEDTIME PRN 06/05/17 [History] traZODone HCl [Trazodone HCl] 25 mg PO TID 06/05/17 [History] Past Medical History HEENT History: Reports: Impaired Vision Other HEENT History: corneal ulcer, wears glasses Cardiovascular History: Reports: Aneurysm (AAA + splenic artery aneurysm), High Cholesterol, Hypertension Respiratory History: Reports: Other (See Below) (Benign pulmonary nodules) Gastrointestinal History: Reports: Hemorrhoids Genitourinary History: Reports: Renal Calculus, Urinary Incontinence Musculoskeletal History: Reports: Fracture (Spinal compression fractures), Osteoporosis Psychiatric History: Reports: Anxiety, Depression, Other (See Below) ( Fibromyalgia, chronic fatigue syndrome) Endocrine/Metabolic History: Reports: Hypothyroidism, Osteoporosis Dermatologic History: Reports: Eczema - Past Surgical History HEENT Surgical History: Reports: Cataract Surgery GI Surgical History: Reports: Appendectomy, Colonoscopy Female Surgical History: Reports: Hysterectomy, Lithotripsy/ESWL, Tubal Ligation Endocrine Surgical History: Reports: Parathyroidectomy Musculoskeletal Surgical History: Reports: Other (See Below) (Kyphoplasty) Social & Family History - Tobacco Use Smoking Status *Q: Current Every Day Smoker Years of Tobacco use: 63 Packs/Tins Daily: 0.5 Packs/Tins Daily Comment: Down from 1 ppd - Caffeine Use Caffeine Use: Reports: Coffee - Alcohol Use Alcohol Use History: No - Recreational Drug Use Recreational Drug Use: No - Living Situation & Occupation Living situation: Reports: , with Spouse Occupation: Retired ED ROS GENERAL - Review of Systems Review Of Systems: ROS reveals no pertinent complaints other than HPI. ED EXAM, GENERAL - Physical Exam Exam: See Below Exam Limited By: No Limitations General Appearance: Alert, WD/WN, No Apparent Distress Eye Exam: Bilateral Eye: Normal Inspection Ears: Normal External Exam, Hearing Grossly Normal Nose: Normal Inspection, No Blood Throat/Mouth: Normal Inspection, Normal Lips, Normal Voice, No Airway Compromise Head: Atraumatic, Normocephalic Neck: Normal Inspection, Full Range of Motion Respiratory/Chest: No Respiratory Distress, Lungs Clear, Normal Breath Sounds, No Accessory Muscle Use Cardiovascular: Normal Peripheral Pulses, Regular Rate, Rhythm, No Gallop, No JVD, No Murmur, No Rub Peripheral Pulses: 4+: Radial (L), Radial (R) GI/Abdominal: Normal Bowel Sounds, Soft, Non-Tender, No Organomegaly, No Distention, No Abnormal Bruit, No Mass (Female) Exam: Deferred Rectal (Female) Exam: Deferred Extremities: Normal Inspection, Normal Range of Motion, No Pedal Edema, Normal Capillary Refill Neurological: Alert, Oriented, Normal Cognition, No Motor/Sensory Deficits Psychiatric: Normal Affect Skin Exam: Warm, Dry, Intact, Normal Color, No Rash Course - Vital Signs Last Recorded V/S: Last Vital Signs Temp 37.4 C 06/05/17 14:31 Pulse 76 06/05/17 14:31 Resp 16 06/05/17 14:31 BP 139/105 H 06/05/17 14:31 Pulse Ox 100 06/05/17 14:31 - Re-Assessments/Exams Free Text/Narrative Re-Assessment/Exam: 06/05/17 15:37 The patient was mostly concerned that the exacerbation of her chronic weakness and tiredness is the result of the iodinated contrast that she received yesterday when she underwent a CT angiogram her abdomen and pelvis. It is not. I suspect that the patient is suffering from depression, fibromyalgia, and chronic fatigue syndrome. Currently she is on trazodone and Restoril, which seem like odd choices as antidepressants and anxiolytics, as both have high incidences of sedation, drowsiness, and fatigue. I am recommending that she follow-up with her PCP, Dr. Avila, to discuss the option of referral to a different Psychologist. A new set of eyes on this case may benefit the patient. Departure - Departure Time of Disposition: 15:33 Disposition: Home, Self-Care 01 Condition: Good Clinical Impression: Chronic fatigue syndrome with fibromyalgia, Depression with anxiety - Discharge Information Instructions: Major Depressive Disorder, Adult, [id number] Referrals: Keny Avila MD [Primary Care Provider] - Forms: ED Department Discharge Additional Instructions: You were seen in the emergency room for increased weakness, tiredness, and fatigue following a CT angiogram 06/04/2017. Your symptoms ARE NOT related to the IV contrast that you received. You are NOT ALLERGIC to iodinated contrast. Your symptoms are MOST LIKELY due to depression, fibromyalgia, and chronic fatigue syndrome. The trazodone and Restoril that you are currently prescribed both have high incidences of sedation, drowsiness, and fatigue. We recommend that you follow-up with your PCP, Dr. Avila, to discuss the option of referral to a different Psychiatrist. A different perspective may help you. If any other problems, please do not hesitate to return to the ER.
== END 2017-06-05 15:43 | disposition home or self-care (01) ==
LOC: JD.ED 14:11
DX: R53.82 Chronic fatigue, unspecified (principal); M79.7 Fibromyalgia; F41.8 Other specified anxiety disorders; E78.00 Pure hypercholesterolemia, unspecified; I10 Essential (primary) hypertension; E03.9 Hypothyroidism, unspecified; F17.210 Nicotine dependence, cigarettes, uncomplicated; Z88.1 Allergy status to other antibiotic agents; Z88.2 Allergy status to sulfonamides; Z88.8 Allergy status to other drugs, medicaments and biological substances; Z79.899 Other long term (current) drug therapy; Z79.82 Long term (current) use of aspirin
CPT/HCPCS: 99284

== ENCOUNTER 2017-06-24 17:42 | Emergency (ER) | payer MEDICARE, BC ==
[2017-06-24 18:07] VITALS: BP 150/103
--- NOTE | 2017-06-24 18:54 | EDM.PDOC ---
ED HPI GENERAL MEDICAL PROBLEM - General Chief Complaint: General Stated Complaint: JUST NOT FEELING WELL Time Seen by Provider: 06/24/17 18:45 Source of Information: Reports: Patient History Limitations: Reports: No Limitations - History of Present Illness INITIAL COMMENTS - FREE TEXT/NARRATIVE: Patient is 81-year-old female with a long history of anxiety and depression who presents the ED with a generalized complaining of not feeling well. States she' s lacking motivation and getting up in the morning. States she sleeps quite a few hours during the day. She's lacking energy and also enjoyment of doing things that she previously did enjoy. She has seen multiple psych providers with multiple different types of medications started and stopped. As a recently patient fluoxetine 20 mg this past Friday. They discontinue the trazodone and Restoril. This started the patient on low-dose lorazepam to she's been taking 1 tablet every morning. States the fluoxetine was started by her PCP. Patient was being evaluated by a psych provider in [place] to canceled all appointments due to difficulty in arranging evaluations. As of recent her TSH was within normal limits. No changes to the levothyroxine dosages were made. 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 is unclear why it symptoms started approximately 4 years ago and progressively got worse. Patient denies any fever/chills, chest pain, SOB, nausea/vomiting, hallucinations, suicidal ideations, or any additional complaint. - Related Data Allergies Allergy/AdvReac Type Severity Reaction Status Date / Time adhesive tape Allergy Cannot Verified 06/24/17 18:03 Remember Sulfa (Sulfonamide Allergy Cannot Verified 06/24/17 18:03 Antibiotics) Remember buspirone HCl [From BuSpar] AdvReac Mild Insomnia Verified 06/24/17 18:03 Home Meds: Home Meds Aspirin [Ecotrin] 325 mg PO DAILY 10/08/15 [History] Denosumab [Prolia] 60 mg INJECT Q6M 10/08/15 [History] Levothyroxine 125 mcg PO DAILY 10/08/15 [History] Magnesium Hydroxide [Milk of Magnesia] 30 ml PO DAILY PRN 10/08/15 [History] Calcium Carbonate 1,500 mg PO DAILY 09/17/16 [History] Cetirizine [ZyrTEC] 10 mg PO ASDIRECTED PRN 09/17/16 [History] Cholecalciferol (Vitamin D3) [Vitamin D3] 3,000 units PO DAILY 09/17/16 [History ] Estradiol [Estrace 0.01% Vaginal Crm] 1 applic VAG ASDIRECTED 09/17/16 [History] Lidocaine 2% [Xylocaine 2% Jelly] 1 applic TOP ASDIRECTED 09/17/16 [History] Pramoxine HCl [Sarna Sensitive] 1 applic TOP ASDIRECTED PRN 09/17/16 [History] Sennosides/Docusate Sodium [Senna-Docusate Sodium] 2 tab PO BEDTIME 09/17/16 [ History] Triamcinolone Acetonide [Triamcinolone Acetonide 0.1% Crm] 1 applic TOP ASDIRECTED 09/17/16 [History] Lactobacillus Acidophilus [Probiotic] 1 each PO DAILY #90 capsule 09/18/16 [Rx] Hydrocortisone Acetate [Anusol-Hc] 25 mg RC ASDIRECTED 06/05/17 [History] Losartan [Cozaar] 25 mg PO DAILY 06/05/17 [History] Polyethylene Glycol 3350 [MiraLAX] 17 gm PO DAILY PRN 06/05/17 [History] Rectal Rocket 1 dose RECTAL ASDIRECTED PRN 06/05/17 [History] Temazepam [Restoril] 15 mg PO BEDTIME PRN 06/05/17 [History] traZODone HCl [Trazodone HCl] 25 mg PO TID 06/05/17 [History] Past Medical History HEENT History: Reports: Impaired Vision Other HEENT History: corneal ulcer, wears glasses Cardiovascular History: Reports: Aneurysm, High Cholesterol, Hypertension Other Cardiovascular History: splenic artery anurysm Respiratory History: Reports: Other (See Below) Other Respiratory History: pulmonary nodules Gastrointestinal History: Reports: Hemorrhoids Other Gastrointestinal History: LUQ pain, nausea/vomiting, lower abdominal pain Genitourinary History: Reports: Renal Calculus, Urinary Incontinence [employer] History: Reports: None Musculoskeletal History: Reports: Fracture, Osteoporosis Other Musculoskeletal History: degnerative joint disease Neurological History: Reports: None Psychiatric History: Reports: Anxiety, Depression, Other (See Below) Other Psychiatric History: fatigue Endocrine/Metabolic History: Reports: Hypothyroidism, Osteoporosis Hematologic History: Reports: Other (See Below) Other Hematologic History: pancytopenia Immunologic History: Reports: None Oncologic (Cancer) History: Reports: None Dermatologic History: Reports: Eczema Other Dermatologic History: atypical nevus - Past Surgical History HEENT Surgical History: Reports: Cataract Surgery GI Surgical History: Reports: Appendectomy, Colonoscopy Female Surgical History: Reports: Hysterectomy, Lithotripsy/ESWL, Tubal Ligation Endocrine Surgical History: Reports: Parathyroidectomy Musculoskeletal Surgical History: Reports: Other (See Below) Social & Family History - Tobacco Use Smoking Status *Q: Current Every Day Smoker Years of Tobacco use: 60 Packs/Tins Daily: 0.5 - Caffeine Use Caffeine Use: Reports: Coffee - Recreational Drug Use Recreational Drug Use: No - Living Situation & Occupation Living situation: Reports: , with Spouse Occupation: Retired ED ROS GENERAL - Review of Systems Review Of Systems: ROS reveals no pertinent complaints other than HPI. ED EXAM, GENERAL - Physical Exam Exam: See Below Exam Limited By: No Limitations General Appearance: Alert, WD/WN, Anxious Ears: Hearing Grossly Normal Nose: Normal Inspection Throat/Mouth: Normal Voice, No Airway Compromise Neck: Normal Inspection, Supple Respiratory/Chest: No Respiratory Distress, Lungs Clear, Normal Breath Sounds, No Accessory Muscle Use Cardiovascular: Normal Peripheral Pulses, Regular Rate, Rhythm Peripheral Pulses: 3+: Radial (L) GI/Abdominal: Normal Bowel Sounds, Soft, Non-Tender, No Organomegaly, No Distention Back Exam: Normal Inspection Extremities: Normal Inspection Neurological: Alert, Oriented, CN II-XII Intact, Normal Cognition, No Motor/ Sensory Deficits Psychiatric: Normal Affect, Anxious Skin Exam: Warm, Dry, Intact, Normal Color, No Rash Course - Vital Signs Last Recorded V/S: Last Vital Signs Temp 96.7 F 06/24/17 18:03 Pulse 70 06/24/17 18:03 Resp 18 06/24/17 18:03 BP 150/103 H 06/24/17 18:03 Pulse Ox 99 06/24/17 18:03 - Re-Assessments/Exams Free Text/Narrative Re-Assessment/Exam: Discussed with the patient in great detail that the fluoxetine is a medication that will require tapering up if not working at current dosage. It can take up to 12 weeks to find the appropriate dosage. Patient was made aware that stopping this medication is not advised. In addition advised the patient that the lorazepam taken the morning can cause increasing drowsiness and fatigue thus suggested taking at night to help with her symptoms. Suggested that she does stop the lorazepam when able. See a psych provider for further management medications and also cognitive behavior therapy. Patient had no additional questions concerns they were in agreement with treatment plan. Departure - Departure Time of Disposition: 18:51 Disposition: Home, Self-Care 01 Condition: Good Clinical Impression: Depression with anxiety - Discharge Information Instructions: Major Depressive Disorder, Adult, [id number] Referrals: Keny Avila MD [Primary Care Provider] - [facility] [Outside] Jose C Allan MD [Physician] - Sarah Naqvi NP [Nurse Practitioner] - Forms: ED Department Discharge Additional Instructions: Continue taking all your home medications as prescribed. Suggest taking lorazepam at night rather then in the a.m. See a pysch provider at [facility], Humera Naqvi, or Dr. Allan. Call for an appt. Return to the E.D. for any new or worsening symptoms.
== END 2017-06-24 19:04 | disposition home or self-care (01) ==
LOC: JD.ED 17:42
DX: F41.8 Other specified anxiety disorders (principal); F17.210 Nicotine dependence, cigarettes, uncomplicated; I10 Essential (primary) hypertension; E78.00 Pure hypercholesterolemia, unspecified; E03.9 Hypothyroidism, unspecified; Z79.82 Long term (current) use of aspirin; Z79.899 Other long term (current) drug therapy; Z88.2 Allergy status to sulfonamides; Z91.048 Other nonmedicinal substance allergy status; Z88.8 Allergy status to other drugs, medicaments and biological substances
CPT/HCPCS: 99283

== ENCOUNTER 2017-06-27 09:32 | Emergency (ER) | payer MEDICARE, BC ==
[2017-06-27 10:08] VITALS: BP 163/76
--- NOTE | 2017-06-27 10:48 | EDM.PDOC ---
ED HPI GENERAL MEDICAL PROBLEM - General Chief Complaint: General Stated Complaint: WEAKNESS/LETHARGY Time Seen by Provider: 06/27/17 10:09 Source of Information: Reports: Patient History Limitations: Reports: No Limitations - History of Present Illness INITIAL COMMENTS - FREE TEXT/NARRATIVE: 81 y/o F with hx HTN, fibromyalgia, depression and anxiety, presents with severe fatigue and hopelessness. She's had an extensive workup for her fatigue mostly as an outpatient, including cardiac stress test, colonoscopy/EGD, CT scan , labs. So far her medical workup has been negative according to patient. She has been seen recently by her primary care provider Dr. Luis who started prozac 20 mg about 9 days ago. She has been taking this and is not yet feeling any better. Feels like she's constantly tired and anxious. Can't get out of bed due to fatigue and hopelessness. Feels depressed. Has no plan for suicide but states she'd be better of and would like to . Denies suicide attempt or overdose. No drug/ETOH use. Here today because "I can't take it anymore". No fever/recent illness. No chest pain, shortness of breath, diarrhea , or urinary symptoms. - Related Data Allergies Allergy/AdvReac Type Severity Reaction Status Date / Time adhesive tape Allergy Cannot Verified 06/27/17 10:01 Remember Sulfa (Sulfonamide Allergy Cannot Verified 06/27/17 10:01 Antibiotics) Remember buspirone HCl [From BuSpar] AdvReac Mild Insomnia Verified 06/27/17 10:01 Home Meds: Home Meds Aspirin [Ecotrin] 325 mg PO DAILY 10/08/15 [History] Denosumab [Prolia] 60 mg INJECT Q6M 10/08/15 [History] Levothyroxine 125 mcg PO DAILY 10/08/15 [History] Magnesium Hydroxide [Milk of Magnesia] 30 ml PO DAILY PRN 10/08/15 [History] Calcium Carbonate 1,500 mg PO DAILY 09/17/16 [History] Cetirizine [ZyrTEC] 10 mg PO ASDIRECTED PRN 09/17/16 [History] Cholecalciferol (Vitamin D3) [Vitamin D3] 3,000 units PO DAILY 09/17/16 [History ] Estradiol [Estrace 0.01% Vaginal Crm] 1 applic VAG ASDIRECTED 09/17/16 [History] Lidocaine 2% [Xylocaine 2% Jelly] 1 applic TOP ASDIRECTED 09/17/16 [History] Pramoxine HCl [Sarna Sensitive] 1 applic TOP ASDIRECTED PRN 09/17/16 [History] Sennosides/Docusate Sodium [Senna-Docusate Sodium] 2 tab PO BEDTIME 09/17/16 [ History] Triamcinolone Acetonide [Triamcinolone Acetonide 0.1% Crm] 1 applic TOP ASDIRECTED 09/17/16 [History] Lactobacillus Acidophilus [Probiotic] 1 each PO DAILY #90 capsule 09/18/16 [Rx] Hydrocortisone Acetate [Anusol-Hc] 25 mg RC ASDIRECTED 06/05/17 [History] Losartan [Cozaar] 25 mg PO DAILY 06/05/17 [History] Polyethylene Glycol 3350 [MiraLAX] 17 gm PO DAILY PRN 06/05/17 [History] Rectal Rocket 1 dose RECTAL ASDIRECTED PRN 06/05/17 [History] Temazepam [Restoril] 15 mg PO BEDTIME PRN 06/05/17 [History] traZODone HCl [Trazodone HCl] 25 mg PO TID 06/05/17 [History] Past Medical History HEENT History: Reports: Cataract, Impaired Vision Other HEENT History: corneal ulcer, wears glasses Cardiovascular History: Reports: Aneurysm, High Cholesterol, Hypertension Other Cardiovascular History: splenic artery anurysm Respiratory History: Reports: Other (See Below) Other Respiratory History: pulmonary nodules Gastrointestinal History: Reports: Hemorrhoids Other Gastrointestinal History: LUQ pain, nausea/vomiting, lower abdominal pain Genitourinary History: Reports: Renal Calculus, Urinary Incontinence 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: Musculoskeletal History: Reports: Fracture, Osteoporosis Other Musculoskeletal History: degnerative joint disease Neurological History: Reports: None Psychiatric History: Reports: Anxiety, Depression, Other (See Below) Other Psychiatric History: fatigue Endocrine/Metabolic History: Reports: Hypothyroidism, Osteoporosis Hematologic History: Reports: Other (See Below) Other Hematologic History: pancytopenia Immunologic History: Reports: None Oncologic (Cancer) History: Reports: None Dermatologic History: Reports: Eczema Other Dermatologic History: atypical nevus - Infectious Disease History Infectious Disease History: Reports: Shingles - Past Surgical History HEENT Surgical History: Reports: Cataract Surgery GI Surgical History: Reports: Appendectomy, Colonoscopy Female Surgical History: Reports: Hysterectomy, Lithotripsy/ESWL, Tubal Ligation Endocrine Surgical History: Reports: Parathyroidectomy Musculoskeletal Surgical History: Reports: Other (See Below) Other Musculoskeletal Surgeries/Procedures:: kyphoplasty. Social & Family History - Tobacco Use Smoking Status *Q: Current Every Day Smoker Years of Tobacco use: 62 Packs/Tins Daily: 0.5 - Caffeine Use Caffeine Use: Reports: Coffee - Recreational Drug Use Recreational Drug Use: No - Living Situation & Occupation Living situation: Reports: , with Spouse Occupation: Retired ED ROS GENERAL - Review of Systems Review Of Systems: See Below Constitutional: Reports: Malaise, Weakness, Fatigue. Denies: Fever HEENT: Reports: No Symptoms Respiratory: Denies: Shortness of Breath, Cough Cardiovascular: Denies: Chest Pain Endocrine: Reports: Fatigue GI/Abdominal: Reports: Vomiting. Denies: Abdominal Pain Musculoskeletal: Reports: No Symptoms Skin: Reports: No Symptoms Neurological: Reports: No Symptoms Psychiatric: Reports: Depression ED EXAM, GENERAL - Physical Exam Exam: See Below Exam Limited By: No Limitations General Appearance: Alert, WD/WN, No Apparent Distress Eye Exam: Bilateral Eye: EOMI, Normal Inspection, PERRL Ears: Normal External Exam Nose: Normal Inspection Throat/Mouth: Normal Inspection, Normal Oropharynx, Normal Voice Head: Atraumatic, Normocephalic Neck: Normal Inspection, Supple, Non-Tender Respiratory/Chest: No Respiratory Distress, Lungs Clear, Normal Breath Sounds, Chest Non-Tender Cardiovascular: Normal Peripheral Pulses, Regular Rate, Rhythm, No Edema, No Murmur GI/Abdominal: Normal Bowel Sounds, Soft, Non-Tender, No Distention Extremities: Normal Inspection Neurological: Alert, Oriented, Normal Cognition, No Motor/Sensory Deficits Psychiatric: Anxious, Depressed Mood, Flat Affect Skin Exam: Warm, Dry, Intact, Normal Color Course - Vital Signs Last Recorded V/S: Last Vital Signs Temp 36.2 C 06/27/17 09:50 Pulse 56 L 06/27/17 09:50 Resp 16 06/27/17 09:50 BP 163/76 H 06/27/17 09:50 Pulse Ox 100 06/27/17 09:50 - Orders/Labs/Meds Orders: Active Orders 24 hr Category Date Time Status EKG 12 Lead [EKG Documentation Completion] [RC] STAT Care 06/27/17 10:09 Active Peripheral IV Care [RC] . DIRECTED Care 06/27/17 10:09 Active Sodium Chloride 0.9% [Saline Flush] Med 06/27/17 10:09 Active 10 ml FLUSH ASDIRECTED PRN Peripheral IV Insertion Adult [OM.PC] Routine Oth 06/27/17 10:09 Ordered Medication Orders Sodium Chloride (Saline Flush) 10 ml FLUSH ASDIRECTED PRN PRN Reason: Keep Vein Open Last Admin: 06/27/17 11:06 Dose: 10 ml Labs: Laboratory Tests 06/27/17 06/27/17 06/27/17 Range/Units 10:45 10:45 10:45 WBC 3.54 L (3.98-10.04) K/mm3 RBC 4.28 (3.98-5.22) M/mm3 Hgb 13.7 (11.2-15.7) gm/L Hct 40.5 (34.1-44.9) % MCV 94.6 (79.4-94.8) fl MCH 32.0 (25.6-32.2) pg MCHC 33.8 (32.2-35.5) g/dl RDW Std Deviation 45.7 (36.4-46.3) fL Plt Count 168 L (182-369) K/mm3 MPV 11.7 (9.4-12.3) fl Neut % (Auto) 67.8 (34.0-71.1) % Lymph % (Auto) 22.9 (19.3-51.7) % Towner % (Auto) 7.1 (4.7-12.5) % Eos % (Auto) 1.4 (0.7-5.8) Baso % (Auto) 0.8 (0.1-1.2) % Neut # (Auto) 2.40 (1.56-6.13) K/mm3 Lymph # (Auto) 0.81 L (1.18-3.74) K/mm3 Towner # (Auto) 0.25 (0.24-0.36) K/mm3 Eos # (Auto) 0.05 (0.04-0.36) K/mm3 Baso # (Auto) 0.03 (0.01-0.08) K/mm3 Sodium 141 (136-145) mEq/L Potassium 3.3 L (3.5-5.1) mEq/L Chloride 106 (98-107) mEq/L Carbon Dioxide 24 (21-32) mEq/L Anion Gap 14.3 (5-15) BUN 14 (7-18) mg/dL Creatinine 0.8 (0.55-1.02) mg/dL Est Cr Clr Drug Dosing 48.19 mL/min Estimated GFR (MDRD) > 60 (>60) mL/min BUN/Creatinine Ratio 17.5 (14-18) Glucose 116 H (83-115) mg/dL Calcium 9.0 (8.5-10.1) mg/dL Magnesium 1.9 (1.8-2.4) mg/dl Total Bilirubin 0.6 (0.2-1.0) mg/dL AST 17 (15-37) U/L ALT 29 (14-59) U/L Alkaline Phosphatase 72 (46-116) U/L Troponin I < 0.017 (0.00-0.056) ng/mL Total Protein 7.6 (6.4-8.2) g/dl Albumin 3.5 (3.4-5.0) g/dl Globulin 4.1 gm/dL Albumin/Globulin Ratio 0.9 L (1-2) Lipase 84 (73-393) U/L Free T4 1.18 (0.76-1.46) ng/dL TSH 3rd Generation 1.250 (0.358-3.74) uIU/mL Urine Color (Yellow) Urine Appearance (Clear) Urine pH (5.0-8.0) Ur Specific Sears (1.005-1.030) Urine Protein (Negative) Urine Glucose (UA) (Negative) Urine Ketones (Negative) Urine Occult Blood (Negative) Urine Nitrite (Negative) Urine Bilirubin (Negative) Urine Urobilinogen (0.2-1.0) Ur Leukocyte Esterase (Negative) Urine RBC (0-5) /hpf Urine WBC (0-5) /hpf Ur Epithelial Cells (0-5) /hpf Amorphous Sediment (NOT SEEN) /hpf Urine Bacteria (FEW) /hpf Urine Mucus (FEW) /hpf Salicylates (2.8-20) mg/dL Acetaminophen (10-30) ug/mL Ethyl Alcohol (0.00) gm% 06/27/17 06/27/17 06/27/17 Range/Units 10:45 10:45 11:55 WBC (3.98-10.04) K/mm3 RBC (3.98-5.22) M/mm3 Hgb (11.2-15.7) gm/L Hct (34.1-44.9) % MCV (79.4-94.8) fl MCH (25.6-32.2) pg MCHC (32.2-35.5) g/dl RDW Std Deviation (36.4-46.3) fL Plt Count (182-369) K/mm3 MPV (9.4-12.3) fl Neut % (Auto) (34.0-71.1) % Lymph % (Auto) (19.3-51.7) % Towner % (Auto) (4.7-12.5) % Eos % (Auto) (0.7-5.8) Baso % (Auto) (0.1-1.2) % Neut # (Auto) (1.56-6.13) K/mm3 Lymph # (Auto) (1.18-3.74) K/mm3 Towner # (Auto) (0.24-0.36) K/mm3 Eos # (Auto) (0.04-0.36) K/mm3 Baso # (Auto) (0.01-0.08) K/mm3 Sodium (136-145) mEq/L Potassium (3.5-5.1) mEq/L Chloride (98-107) mEq/L Carbon Dioxide (21-32) mEq/L Anion Gap (5-15) BUN (7-18) mg/dL Creatinine (0.55-1.02) mg/dL Est Cr Clr Drug Dosing mL/min Estimated GFR (MDRD) (>60) mL/min BUN/Creatinine Ratio (14-18) Glucose (83-115) mg/dL Calcium (8.5-10.1) mg/dL Magnesium (1.8-2.4) mg/dl Total Bilirubin (0.2-1.0) mg/dL AST (15-37) U/L ALT (14-59) U/L Alkaline Phosphatase (46-116) U/L Troponin I (0.00-0.056) ng/mL Total Protein (6.4-8.2) g/dl Albumin (3.4-5.0) g/dl Globulin gm/dL Albumin/Globulin Ratio (1-2) Lipase (73-393) U/L Free T4 (0.76-1.46) ng/dL TSH 3rd Generation (0.358-3.74) uIU/mL Urine Color Yellow (Yellow) Urine Appearance Clear (Clear) Urine pH 7.5 (5.0-8.0) Ur Specific Sears 1.020 (1.005-1.030) Urine Protein 1+ H (Negative) Urine Glucose (UA) Negative (Negative) Urine Ketones Negative (Negative) Urine Occult Blood Negative (Negative) Urine Nitrite Negative (Negative) Urine Bilirubin Negative (Negative) Urine Urobilinogen 0.2 (0.2-1.0) Ur Leukocyte Esterase Trace H (Negative) Urine RBC 5-10 H (0-5) /hpf Urine WBC 20-30 H (0-5) /hpf Ur Epithelial Cells 10-20 H (0-5) /hpf Amorphous Sediment Many H (NOT SEEN) /hpf Urine Bacteria Few (FEW) /hpf Urine Mucus Not seen (FEW) /hpf Salicylates 5.1 (2.8-20) mg/dL Acetaminophen 0 L (10-30) ug/mL Ethyl Alcohol 0.00 (0.00) gm% Meds: Medications Generic Name Dose Route Start Last Admin Trade Name Freq PRN Reason Stop Dose Admin Sodium Chloride 10 ml 06/27/17 10:09 06/27/17 11:06 Saline Flush FLUSH 10 ml ASDIRECTED PRN Administration Keep Vein Open - Re-Assessments/Exams Free Text/Narrative Re-Assessment/Exam: 06/27/17 12:47 CXR shows no pneumonia. CBC/chem/thyroid studies are normal. Tox labs unremarkable. Discussed with Heide Rothman at [facility] in [place] who agrees to admit the patient for her severe depression symptoms. The patient would like to be admitted. We will place a hold to avoid problems should patient change her mind. Departure - Departure Time of Disposition: 13:40 Disposition: DC/Tfer to Psych Hosp/Unit 65 Clinical Impression: Severe major depression, Passive suicidal ideations - Discharge Information Referrals: Margarita,Keny P, MD [Primary Care Provider] - Forms: ED Department Discharge Additional Instructions: 1. Go directly to [facility] and advise them that you are a direct admission. - My Orders Last 24 Hours: My Active Orders 06/27/17 10:09 EKG 12 Lead [EKG Documentation Completion] [RC] STAT Peripheral IV Care [RC] . DIRECTED Sodium Chloride 0.9% [Saline Flush] 10 ml FLUSH ASDIRECTED PRN Peripheral IV Insertion Adult [OM.PC] Routine - Assessment/Plan Last 24 Hours: My Active Orders 06/27/17 10:09 EKG 12 Lead [EKG Documentation Completion] [RC] STAT Peripheral IV Care [RC] . DIRECTED Sodium Chloride 0.9% [Saline Flush] 10 ml FLUSH ASDIRECTED PRN Peripheral IV Insertion Adult [OM.PC] Routine
[2017-06-27] MEDS: Sodium Chloride 0.9% 10 ML Syringe FLUSH PRN (11:06)
--- NOTE | 2017-06-27 12:01 | CR ---
Chest: Frontal view of the chest was obtained. Comparison: Prior chest x-ray of 10/08/15. Heart is slightly enlarged. Tortuous thoracic aorta is seen. Evidence of previous vertebroplasty. Mild scoliosis is seen. Lung markings are mildly increased which appear to be chronic. Bony structures are osteopenic. Impression: 1. Multiple findings as noted above. Nothing acute is appreciated. Diagnostic code #2
== END 2017-06-27 14:45 ==
LOC: JD.ED 09:32
DX: F32.9 Major depressive disorder, single episode, unspecified (principal); I10 Essential (primary) hypertension; E78.00 Pure hypercholesterolemia, unspecified; E03.9 Hypothyroidism, unspecified; F17.210 Nicotine dependence, cigarettes, uncomplicated; Z79.82 Long term (current) use of aspirin; Z79.899 Other long term (current) drug therapy; Z88.2 Allergy status to sulfonamides; Z88.8 Allergy status to other drugs, medicaments and biological substances; Z91.048 Other nonmedicinal substance allergy status
CPT/HCPCS: 36415; 71045; 80053; 81001; 83690; 83735; 84439; 84443; 84484; 85025; 93005; 99285; G0480; J7050

== ENCOUNTER 2017-11-29 14:19 | Emergency (ER) | payer MEDICARE, BC ==
[2017-11-29 14:52] VITALS: BP 135/74
[2017-11-29] MEDS ORDERED: Sodium Chloride 0.9% 500 ML IV ONE (16:55)
[2017-11-29] MEDS ORDERED: Ondansetron 4 MG/2 ML SDV IVPUSH ONE (16:55)
--- NOTE | 2017-11-29 17:11 | EDM.PDOC ---
ED HPI GENERAL MEDICAL PROBLEM - General Chief Complaint: General Stated Complaint: WEAKNESS/DIZZINESS Time Seen by Provider: 11/29/17 16:40 Source of Information: Reports: Patient History Limitations: Reports: No Limitations - History of Present Illness INITIAL COMMENTS - FREE TEXT/NARRATIVE: 82-year-old female presents for evaluation and treatment of dizziness and headache. Patient reports that her symptoms started yesterday. Progressively worsening. Reports associated symptoms of fatigue, weakness and nausea. No chest pain, shortness of breath, vomiting or syncope. Patient reports that the dizziness is worse with movement. When she is lying completely still she does not have any dizziness. Reports that the headache is currently 1 or 2 out of 10. She did take some Tylenol this morning and some aspirin around noon which seemed to help. She states that she has diaphoretic once in a while. Patient reports that the fatigue is chronic. Has been going on for quite some time. She has seen a primary care provider about this and has been worked up by Dr. Oquendo for the chronic fatigue. No history of any CVA or WI. Daughter is present at bedside and states she does not drink much for fluids. Patient reports she had an echocardiogram within the last year. Reports she had an EGD and colonoscopy in [place] which both returned normal recently. - Related Data Allergies Allergy/AdvReac Type Severity Reaction Status Date / Time adhesive tape Allergy Cannot Verified 11/29/17 14:41 Remember Sulfa (Sulfonamide Allergy Cannot Verified 11/29/17 14:41 Antibiotics) Remember buspirone HCl [From BuSpar] AdvReac Mild Insomnia Verified 11/29/17 14:41 Home Meds: Home Meds Aspirin [Ecotrin] 325 mg PO DAILY 10/08/15 [History] Denosumab [Prolia] 60 mg INJECT Q6M 10/08/15 [History] Levothyroxine 125 mcg PO DAILY 10/08/15 [History] Magnesium Hydroxide [Milk of Magnesia] 30 ml PO DAILY PRN 10/08/15 [History] Calcium Carbonate 1,500 mg PO DAILY 09/17/16 [History] Cholecalciferol (Vitamin D3) [Vitamin D3] 3,000 units PO DAILY 09/17/16 [History ] Estradiol [Estrace 0.01% Vaginal Crm] 1 applic VAG ASDIRECTED 09/17/16 [History] Lidocaine 2% [Xylocaine 2% Jelly] 1 applic TOP ASDIRECTED 09/17/16 [History] Pramoxine HCl [Sarna Sensitive] 1 applic TOP ASDIRECTED PRN 09/17/16 [History] Sennosides/Docusate Sodium [Senna-Docusate Sodium] 2 tab PO BEDTIME 09/17/16 [ History] Lactobacillus Acidophilus [Probiotic] 1 each PO DAILY #90 capsule 09/18/16 [Rx] Hydrocortisone Acetate [Anusol-Hc] 25 mg RC ASDIRECTED 06/05/17 [History] Losartan [Cozaar] 25 mg PO DAILY 06/05/17 [History] Polyethylene Glycol 3350 [MiraLAX] 17 gm PO DAILY PRN 06/05/17 [History] Rectal Rocket 1 dose RECTAL ASDIRECTED PRN 06/05/17 [History] Temazepam [Restoril] 15 mg PO BEDTIME PRN 06/05/17 [History] ALPRAZolam [Xanax] 1 tab PO BID PRN 11/29/17 [History] FLUoxetine HCl [Fluoxetine] 4 tab PO DAILY 11/29/17 [History] Meclizine [Antivert] 25 mg PO TID PRN #20 tab 11/29/17 [Rx] Ondansetron [Zofran ODT] 4 mg PO Q6H PRN #20 tab.dis 11/29/17 [Rx] Past Medical History HEENT History: Reports: Cataract, Impaired Vision Other HEENT History: corneal ulcer, wears glasses Cardiovascular History: Reports: Aneurysm, High Cholesterol, Hypertension Other Cardiovascular History: splenic artery anurysm Respiratory History: Reports: Other (See Below) Other Respiratory History: pulmonary nodules Gastrointestinal History: Reports: Hemorrhoids Other Gastrointestinal History: LUQ pain, nausea/vomiting, lower abdominal pain Genitourinary History: Reports: Renal Calculus, Urinary Incontinence 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: Musculoskeletal History: Reports: Fracture, Osteoporosis Other Musculoskeletal History: degnerative joint disease Neurological History: Reports: None Psychiatric History: Reports: Anxiety, Depression, Other (See Below) Other Psychiatric History: fatigue Endocrine/Metabolic History: Reports: Hypothyroidism, Osteoporosis Hematologic History: Reports: Other (See Below) Other Hematologic History: pancytopenia Immunologic History: Reports: None Oncologic (Cancer) History: Reports: None Dermatologic History: Reports: Eczema Other Dermatologic History: atypical nevus - Infectious Disease History Infectious Disease History: Reports: Shingles - Past Surgical History HEENT Surgical History: Reports: Cataract Surgery GI Surgical History: Reports: Appendectomy, Colonoscopy Female Surgical History: Reports: Hysterectomy, Lithotripsy/ESWL, Tubal Ligation Endocrine Surgical History: Reports: Parathyroidectomy Musculoskeletal Surgical History: Reports: Other (See Below) Other Musculoskeletal Surgeries/Procedures:: kyphoplasty. Social & Family History - Tobacco Use Smoking Status *Q: Current Every Day Smoker Years of Tobacco use: 50 Packs/Tins Daily: 0.5 - Caffeine Use Caffeine Use: Reports: Coffee, Tea - Alcohol Use Days Per Week of Alcohol Use: 2 Number of Drinks Per Day: 1 Total Drinks Per Week: 2 Date of Last Drink: 11/29/17 - Recreational Drug Use Recreational Drug Use: No - Living Situation & Occupation Living situation: Reports: , with Spouse Occupation: Retired ED ROS GENERAL - Review of Systems Review Of Systems: See Below Constitutional: Reports: Weakness, Fatigue, Diaphoresis. Denies: Fever, Chills Respiratory: Denies: Shortness of Breath Cardiovascular: Denies: Chest Pain GI/Abdominal: Reports: Nausea. Denies: Abdominal Pain, Vomiting Neurological: Reports: Dizziness, Headache. Denies: Syncope ED EXAM, GENERAL - Physical Exam Exam: See Below Exam Limited By: No Limitations General Appearance: Alert, WD/WN, No Apparent Distress, Thin Eye Exam: Bilateral Eye: EOMI, Normal Inspection, Nystagmus (present with lateral gaze), PERRL Ears: Normal External Exam, Normal Canal, Hearing Grossly Normal, Normal TMs Nose: Normal Inspection Throat/Mouth: Normal Inspection, Normal Lips, Normal Oropharynx, Normal Voice, No Airway Compromise Head: Atraumatic, Normocephalic Neck: Normal Inspection, Supple, Non-Tender, Full Range of Motion Respiratory/Chest: No Respiratory Distress, Lungs Clear, Normal Breath Sounds Cardiovascular: Normal Peripheral Pulses, Regular Rate, Rhythm, No Murmur Peripheral Pulses: 2+: Radial (L), Radial (R), Posterior Tibial (L), Posterior Tibial (R), Dorsalis Pedis (L), Dorsalis Pedis (R) GI/Abdominal: Soft, Non-Tender Extremities: Normal Inspection, No Pedal Edema Neurological: Alert, Oriented, CN II-XII Intact, Normal Cognition, Other (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 no ischemic changes. But + early transition. Positive left axis deviation, 2. LAFB. No left ventricular hypertrophy. QTC within normal limits. Reviewed by myself and Dr. Horner. Course - Vital Signs Last Recorded V/S: Last Vital Signs Temp 97.9 F 11/29/17 14:51 Pulse 65 11/29/17 14:51 Resp 18 11/29/17 14:51 BP 135/74 11/29/17 14:51 Pulse Ox 98 11/29/17 14:51 Orthostatic Blood Pressure [ 131/84 Standing] Orthostatic Blood Pressure [ 146/89 Sitting] Orthostatic Blood Pressure [ 163/98 Supine] - Orders/Labs/Meds Labs: Laboratory Tests 11/29/17 11/29/17 11/29/17 Range/Units 16:30 16:30 16:30 WBC 4.00 (3.98-10.04) K/mm3 RBC 4.05 (3.98-5.22) M/mm3 Hgb 13.2 (11.2-15.7) gm/L Hct 39.2 (34.1-44.9) % MCV 96.8 H (79.4-94.8) fl MCH 32.6 H (25.6-32.2) pg MCHC 33.7 (32.2-35.5) g/dl RDW Std Deviation 45.0 (36.4-46.3) fL Plt Count 232 (182-369) K/mm3 MPV 10.0 (9.4-12.3) fl Neut % (Auto) 62.4 (34.0-71.1) % Lymph % (Auto) 27.3 (19.3-51.7) % Morrill % (Auto) 8.0 (4.7-12.5) % Eos % (Auto) 1.8 (0.7-5.8) Baso % (Auto) 0.5 (0.1-1.2) % Neut # (Auto) 2.50 (1.56-6.13) K/mm3 Lymph # (Auto) 1.09 L (1.18-3.74) K/mm3 Morrill # (Auto) 0.32 (0.24-0.36) K/mm3 Eos # (Auto) 0.07 (0.04-0.36) K/mm3 Baso # (Auto) 0.02 (0.01-0.08) K/mm3 Sodium 137 (136-145) mEq/L Potassium 3.5 (3.5-5.1) mEq/L Chloride 104 (98-107) mEq/L Carbon Dioxide 24 (21-32) mEq/L Anion Gap 12.5 (5-15) BUN 10 (7-18) mg/dL Creatinine 0.7 (0.55-1.02) mg/dL Est Cr Clr Drug Dosing TNP Estimated GFR (MDRD) > 60 (>60) mL/min BUN/Creatinine Ratio 14.3 (14-18) Glucose 115 (83-115) mg/dL Calcium 9.0 (8.5-10.1) mg/dL Total Bilirubin 0.2 (0.2-1.0) mg/dL AST 16 (15-37) U/L ALT 20 (14-59) U/L Alkaline Phosphatase 81 (46-116) U/L Total Protein 7.6 (6.4-8.2) g/dl Albumin 2.8 L (3.4-5.0) g/dl Globulin 4.8 gm/dL Albumin/Globulin Ratio 0.6 L (1-2) TSH 3rd Generation 1.813 (0.358-3.74) uIU/mL Meds: Medications Discontinued Medications Generic Name Dose Route Start Last Admin Trade Name Freq PRN Reason Stop Dose Admin Sodium Chloride 500 mls @ 999 mls/hr 11/29/17 16:55 11/29/17 17:15 Normal Saline IV 11/29/17 17:25 999 mls/hr ONETIME ONE Administration Meclizine HCl 25 mg 11/29/17 16:55 11/29/17 17:12 Antivert PO 11/29/17 16:56 25 mg NOW STA Administration Ondansetron HCl 4 mg 11/29/17 16:55 11/29/17 17:13 Zofran IVPUSH 11/29/17 16:56 4 mg ONETIME ONE Administration - Re-Assessments/Exams Free Text/Narrative Re-Assessment/Exam: 11/29/17 18:29 Reviewed the labs and EKG with the patient. She does feel fatigued and would like to go home. Dizziness not improved. I do feel this is consistent with vertigo. She is also mildly dehydrated, encouraged to drink fluids. Will Discharge at this time. Discharge instructions as documented. Departure - Departure Time of Disposition: 18:29 Disposition: Home, Self-Care 01 Condition: Fair Clinical Impression: Vertigo - Discharge Information *PRESCRIPTION DRUG MONITORING PROGRAM REVIEWED*: No *COPY OF PRESCRIPTION DRUG MONITORING REPORT IN PATIENT FRANCISCO: No Prescriptions: Meclizine [Antivert] 25 mg PO TID PRN #20 tab PRN Reason: Dizziness Ondansetron [Zofran ODT] 4 mg PO Q6H PRN #20 tab.dis PRN Reason: Nausea Instructions: Vertigo, [id number] Referrals: Keny Avila MD [Primary Care Provider] - Forms: ED Department Discharge Additional Instructions: Take the meclizine 1 tab 3 times a day as needed for dizziness. Zofran 1 tab sublingual every 8 hours as needed for nausea. Make sure you are drinking plenty of fluids. Most the time the vertigo will resolve on its own, recommend follow-up with ear , nose and throat. Recommend Dr. Ceja at [facility] in [place]. Call [phone] to schedule with him. May also see Dr. Onofre. Call [phone] to schedule with him. Follow-up with your primary care provider as needed. Please return the ER if your symptoms change or worsen.
== END 2017-11-29 18:51 | disposition home or self-care (01) ==
LOC: JD.ED 14:19
DX: R42 Dizziness and giddiness (principal); I10 Essential (primary) hypertension; F17.210 Nicotine dependence, cigarettes, uncomplicated; Z79.82 Long term (current) use of aspirin; Z88.2 Allergy status to sulfonamides; Z79.899 Other long term (current) drug therapy; Z88.8 Allergy status to other drugs, medicaments and biological substances; Z91.09 Other allergy status, other than to drugs and biological substances
CPT/HCPCS: 36415; 80053; 84443; 85025; 93005; 96361; 96374; 99284; J2405; J7040; 93010; A9270-GY

== ENCOUNTER 2018-08-18 16:39 | Inpatient (IN) | payer MEDICARE, BC ==
--- NOTE | 2018-08-18 16:49 | EDM.PDOC ---
ED HPI GENERAL MEDICAL PROBLEM - General Chief Complaint: Back Pain or Injury Stated Complaint: SHARP PAINS IN BACK Time Seen by Provider: 08/18/18 16:45 - Related Data Allergies Allergy/AdvReac Type Severity Reaction Status Date / Time adhesive tape Allergy Cannot Verified 11/29/17 14:41 Remember Sulfa (Sulfonamide Allergy Cannot Verified 11/29/17 14:41 Antibiotics) Remember buspirone HCl [From BuSpar] AdvReac Mild Insomnia Verified 11/29/17 14:41 Home Meds: Home Meds Aspirin [Ecotrin] 325 mg PO DAILY 10/08/15 [History] Denosumab [Prolia] 60 mg INJECT Q6M 10/08/15 [History] Levothyroxine 125 mcg PO DAILY 10/08/15 [History] Magnesium Hydroxide [Milk of Magnesia] 30 ml PO DAILY PRN 10/08/15 [History] Calcium Carbonate 1,500 mg PO DAILY 09/17/16 [History] Cholecalciferol (Vitamin D3) [Vitamin D3] 3,000 units PO DAILY 09/17/16 [History ] Estradiol [Estrace 0.01% Vaginal Crm] 1 applic VAG ASDIRECTED 09/17/16 [History] Lidocaine 2% [Xylocaine 2% Jelly] 1 applic TOP ASDIRECTED 09/17/16 [History] Pramoxine HCl [Sarna Sensitive] 1 applic TOP ASDIRECTED PRN 09/17/16 [History] Sennosides/Docusate Sodium [Senna-Docusate Sodium] 2 tab PO BEDTIME 09/17/16 [ History] Lactobacillus Acidophilus [Probiotic] 1 each PO DAILY #90 capsule 09/18/16 [Rx] Hydrocortisone Acetate [Anusol-Hc] 25 mg RC ASDIRECTED 06/05/17 [History] Losartan [Cozaar] 25 mg PO DAILY 06/05/17 [History] Polyethylene Glycol 3350 [MiraLAX] 17 gm PO DAILY PRN 06/05/17 [History] Rectal Rocket 1 dose RECTAL ASDIRECTED PRN 06/05/17 [History] Temazepam [Restoril] 15 mg PO BEDTIME PRN 06/05/17 [History] ALPRAZolam [Xanax] 1 tab PO BID PRN 11/29/17 [History] FLUoxetine HCl [Fluoxetine] 4 tab PO DAILY 11/29/17 [History] Meclizine [Antivert] 25 mg PO TID PRN #20 tab 11/29/17 [Rx] Ondansetron [Zofran ODT] 4 mg PO Q6H PRN #20 tab.dis 11/29/17 [Rx] Cephalexin [Keflex] 500 mg PO TID #21 capsule 01/27/18 [Rx] buPROPion [Wellbutrin SR] 100 mg PO DAILY #30 tab.sr 01/27/18 [Rx] Past Medical History HEENT History: Reports: Cataract, Impaired Vision Other HEENT History: corneal ulcer, wears glasses Cardiovascular History: Reports: Aneurysm, High Cholesterol, Hypertension Other Cardiovascular History: splenic artery anurysm Respiratory History: Reports: Other (See Below) Other Respiratory History: pulmonary nodules Gastrointestinal History: Reports: Hemorrhoids Other Gastrointestinal History: LUQ pain, nausea/vomiting, lower abdominal pain Genitourinary History: Reports: Renal Calculus, Urinary Incontinence 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: Musculoskeletal History: Reports: Fracture, Osteoporosis Other Musculoskeletal History: degnerative joint disease Neurological History: Reports: None Psychiatric History: Reports: Anxiety, Depression, Other (See Below) Other Psychiatric History: fatigue Endocrine/Metabolic History: Reports: Hypothyroidism, Osteoporosis Hematologic History: Reports: Other (See Below) Other Hematologic History: pancytopenia Immunologic History: Reports: None Oncologic (Cancer) History: Reports: None Dermatologic History: Reports: Eczema Other Dermatologic History: atypical nevus - Infectious Disease History Infectious Disease History: Reports: Shingles - Past Surgical History HEENT Surgical History: Reports: Cataract Surgery GI Surgical History: Reports: Appendectomy, Colonoscopy Female Surgical History: Reports: Hysterectomy, Lithotripsy/ESWL, Tubal Ligation Endocrine Surgical History: Reports: Parathyroidectomy Musculoskeletal Surgical History: Reports: Other (See Below) Other Musculoskeletal Surgeries/Procedures:: kyphoplasty. Social & Family History - Caffeine Use Caffeine Use: Reports: Coffee, Soda, Tea - Living Situation & Occupation Living situation: Reports: ( states that all of her problems " are in her head."), with Spouse Occupation: Retired Departure - Discharge Information Referrals: Keny Avila MD [Primary Care Provider] -
--- NOTE | 2018-08-18 17:26 | EDM.PDOC ---
ED HPI GENERAL MEDICAL PROBLEM - General Chief Complaint: Back Pain or Injury Stated Complaint: SHARP PAINS IN BACK Time Seen by Provider: 08/18/18 16:45 - History of Present Illness INITIAL COMMENTS - FREE TEXT/NARRATIVE: 82-year-old female presents emergency room with sharp pain between her shoulder blades. Patient denies any trauma Patient denies any trauma. The patient awoke this morning with this pain she's tried heating pads ice packs changing to different positions and just not getting any better at times. At times she has shortness of breath with this. Patient continues to smoke. However she denies any coronary artery disease. The pain has some variability in it at times it hurts all the time at other times it lightens up when she is not moving. It does not hurt for her to take a deep breath in and out. She has not had any recent leg swelling. She describes the pain is being sharp not a tearing sensation and does not seem to radiate far from its origin. Upper Back Pain Score (Numeric/FACES): 10 - Related Data Allergies Allergy/AdvReac Type Severity Reaction Status Date / Time adhesive tape Allergy Cannot Verified 08/18/18 16:48 Remember Sulfa (Sulfonamide Allergy Cannot Verified 08/18/18 16:48 Antibiotics) Remember buspirone HCl [From BuSpar] AdvReac Mild Insomnia Verified 08/18/18 16:48 Home Meds: Home Meds Denosumab [Prolia] 60 mg INJECT Q6M 10/08/15 [History] Levothyroxine 125 mcg PO DAILY 10/08/15 [History] Calcium Carbonate 1,500 mg PO DAILY 09/17/16 [History] Cholecalciferol (Vitamin D3) [Vitamin D3] 3,000 units PO DAILY 09/17/16 [History ] Estradiol [Estrace 0.01% Vaginal Crm] 1 applic VAG ASDIRECTED 09/17/16 [History] Lidocaine 2% [Xylocaine 2% Jelly] 1 applic TOP ASDIRECTED 09/17/16 [History] Sennosides/Docusate Sodium [Senna-Docusate Sodium] 2 tab PO BEDTIME 09/17/16 [ History] Lactobacillus Acidophilus [Probiotic] 1 each PO DAILY #90 capsule 09/18/16 [Rx] Hydrocortisone Acetate [Anusol-Hc] 25 mg RC BEDTIME 06/05/17 [History] Losartan [Cozaar] 25 mg PO DAILY 06/05/17 [History] Polyethylene Glycol 3350 [MiraLAX] 17 gm PO DAILY PRN 06/05/17 [History] Rectal Rocket 1 dose RECTAL ASDIRECTED PRN 06/05/17 [History] ALPRAZolam [Xanax] 1 tab PO BID PRN 11/29/17 [History] Acetaminophen 325 mg PO Q4HR 08/19/18 [History] Ascorbic Acid 500 mg PO DAILY 08/19/18 [History] Aspirin [Adult Low Dose Aspirin EC] 81 mg PO DAILY 08/19/18 [History] Escitalopram [Lexapro] 20 mg PO BEDTIME 08/19/18 [History] Hydrocortisone [Hydrocortisone 1% Crm] 28.4 gm TOP BID 08/19/18 [History] Magnesium Oxide [Magnesium] 0 mg PO DAILY 08/19/18 [History] Meloxicam 7.5 mg PO WITHBREAKFAST 08/19/18 [History] Triamcinolone Acetonide [Triamcinolone Acetonide 0.1% Crm] 1 applic TOP BID 11/30 [History] Past Medical History HEENT History: Reports: Cataract, Impaired Vision Other HEENT History: corneal ulcer, wears glasses Cardiovascular History: Reports: Aneurysm, High Cholesterol, Hypertension Other Cardiovascular History: splenic artery anurysm Respiratory History: Reports: Other (See Below) Other Respiratory History: pulmonary nodules Gastrointestinal History: Reports: Hemorrhoids Other Gastrointestinal History: LUQ pain, nausea/vomiting, lower abdominal pain Genitourinary History: Reports: Renal Calculus, Urinary Incontinence 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: Musculoskeletal History: Reports: Fracture, Osteoporosis Other Musculoskeletal History: degnerative joint disease Neurological History: Reports: None Psychiatric History: Reports: Anxiety, Depression, Other (See Below) Other Psychiatric History: fatigue Endocrine/Metabolic History: Reports: Hypothyroidism, Osteoporosis Hematologic History: Reports: Other (See Below) Other Hematologic History: pancytopenia Immunologic History: Reports: None Oncologic (Cancer) History: Reports: None Dermatologic History: Reports: Eczema Other Dermatologic History: atypical nevus - Infectious Disease History Infectious Disease History: Reports: Shingles - Past Surgical History HEENT Surgical History: Reports: Cataract Surgery GI Surgical History: Reports: Appendectomy, Colonoscopy Female Surgical History: Reports: Hysterectomy, Lithotripsy/ESWL, Tubal Ligation Endocrine Surgical History: Reports: Parathyroidectomy Musculoskeletal Surgical History: Reports: Other (See Below) Other Musculoskeletal Surgeries/Procedures:: kyphoplasty. Social & Family History - Tobacco Use Smoking Status *Q: Current Every Day Smoker Years of Tobacco use: 30 Packs/Tins Daily: 0.5 - Caffeine Use Caffeine Use: Reports: Coffee - Recreational Drug Use Recreational Drug Use: No - Living Situation & Occupation Living situation: Reports: ( states that all of her problems " are in her head."), with Spouse Occupation: Retired ED ROS GENERAL - Review of Systems Review Of Systems: See Below Constitutional: Reports: No Symptoms HEENT: Reports: No Symptoms Respiratory: Reports: Shortness of Breath. Denies: Wheezing, Cough Cardiovascular: Reports: Chest Pain (Atypical chest pain posterior between shoulder blades) Endocrine: Reports: No Symptoms GI/Abdominal: Reports: Abdominal Pain (Mild lower abdominal suprapubic type discomfort) Skin: Reports: No Symptoms Neurological: Reports: No Symptoms Psychiatric: Reports: No Symptoms Hematologic/Lymphatic: Reports: No Symptoms ED EXAM, GENERAL - Physical Exam Exam: See Below Exam Limited By: No Limitations General Appearance: Alert, No Apparent Distress Head: Atraumatic, Normocephalic Neck: Normal Inspection, Supple, Non-Tender, Full Range of Motion Respiratory/Chest: No Respiratory Distress, Lungs Clear, Normal Breath Sounds, No Accessory Muscle Use Cardiovascular: Regular Rate, Rhythm, No Edema, No Murmur GI/Abdominal: Normal Bowel Sounds, Soft, Other (I'll suprapubic discomfort no rigidity rebound or guarding noted) Back Exam: Normal Inspection, Other (She has pain around the tips of the shoulder blades near the midline does not seem to be aggravated with bony palpation). No: CVA Tenderness (L), CVA Tenderness (R), Vertebral Tenderness Extremities: Normal Inspection, No Pedal Edema Course - Vital Signs Last Recorded V/S: Last Vital Signs Temp 36.7 C 08/19/18 15:35 Pulse 88 08/19/18 00:01 Resp 18 08/19/18 15:35 BP 153/75 H 08/19/18 15:35 Pulse Ox 94 L 08/19/18 15:35 - Orders/Labs/Meds Orders: Medication Orders Acetaminophen (Tylenol) 650 mg PO Q4H PRN PRN Reason: Pain (Mild 1-3)/fever Last Admin: 08/19/18 09:34 Dose: 650 mg Hydrocodone Bitart/Acetaminophen (Marina 325-5 Mg) 1 tab PO Q4H PRN PRN Reason: Pain (moderate 4-6) Last Admin: 08/19/18 11:24 Dose: 1 tab Alprazolam (Xanax) 0.5 mg PO BID PRN PRN Reason: Anxiety Last Admin: 08/19/18 09:30 Dose: 0.5 mg Amlodipine Besylate (Norvasc) 5 mg PO DAILY [facility] Last Admin: 08/19/18 09:31 Dose: 5 mg Aspirin (Halfprin) 81 mg PO DAILY [facility] Last Admin: 08/19/18 09:31 Dose: 81 mg Bisacodyl (Dulcolax) 5 mg PO DAILY PRN PRN Reason: Constipation Calcium Carbonate/Glycine (Calcium Carbonate) 1,200 mg PO DAILY [facility] Last Admin: 08/19/18 09:31 Dose: 1,200 mg Cholecalciferol (Vitamin D3) 3,000 units PO DAILY [facility] Last Admin: 08/19/18 09:31 Dose: 3,000 units Citalopram Hydrobromide (Celexa) 40 mg PO BEDTIME [facility] Famotidine (Pepcid) 20 mg PO DAILY [facility] Hydrocortisone (Hydrocortisone 1% Crm) 0 gm TOP BID [facility] Last Admin: 08/19/18 11:15 Dose: 1 applic Hydrocortisone Acetate (Anucort-Hc) 25 mg RECTAL BID [facility] Last Admin: 08/19/18 09:40 Dose: 25 mg Levofloxacin (Levaquin) 250 mg PO Q24H [facility] Stop: 08/23/18 09:05 Last Admin: 08/19/18 09:30 Dose: 250 mg Levothyroxine Sodium (Levothyroxine) 125 mcg PO ACBREAKFAST [facility] Last Admin: 08/19/18 09:30 Dose: 125 mcg Lidocaine HCl (Xylocaine 2% Jelly) 0 ml TOP ASDIRECTED [facility] Last Admin: 08/19/18 13:23 Dose: 1 applic Methocarbamol (Robaxin) 1,000 mg PO Q6H PRN PRN Reason: Pain Ondansetron HCl (Zofran Odt) 4 mg PO Q4H PRN PRN Reason: nausea, able to take PO Last Admin: 08/19/18 16:26 Dose: 4 mg Sodium Chloride (Saline Flush) 10 ml FLUSH ONETIME PRN PRN Reason: KEEP VEIN OPEN Last Admin: 08/18/18 18:54 Dose: 10 ml Admin: 08/18/18 18:07 Dose: 10 ml Labs: Laboratory Tests 08/18/18 08/18/18 08/18/18 Range/Units 17:20 17:20 17:20 WBC 4.61 (3.98-10.04) K/mm3 RBC 3.72 L (3.98-5.22) M/mm3 Hgb 11.9 (11.2-15.7) gm/L Hct 35.9 (34.1-44.9) % MCV 96.5 H (79.4-94.8) fl MCH 32.0 (25.6-32.2) pg MCHC 33.1 (32.2-35.5) g/dl RDW Std Deviation 44.5 (36.4-46.3) fL Plt Count 142 L (182-369) K/mm3 MPV 11.5 (9.4-12.3) fl Neutrophils % (Manual) 67 H (40-60) % Band Neutrophils % 0 (0-10) % Lymphocytes % (Manual) 26 (20-40) % Atypical Lymphs % 0 % Monocytes % (Manual) 4 (2-10) % Eosinophils % (Manual) 2 (0.7-5.8) % Basophils % (Manual) 1 (0.1-1.2) Platelet Estimate Adequate Plt Morphology Comment Normal RBC Morph Comment Normal PT 10.9 (9.5-12.1) SECONDS INR 1.00 APTT 23 L (24-31) SECONDS D-Dimer, Quantitative 1.10 H (0.19-0.50) mg/L Sodium 139 (136-145) mEq/L Potassium 3.7 (3.5-5.1) mEq/L Chloride 104 (98-107) mEq/L Carbon Dioxide 25 (21-32) mEq/L Anion Gap 13.7 (5-15) BUN 27 H (7-18) mg/dL Creatinine 1.5 H (0.55-1.02) mg/dL Est Cr Clr Drug Dosing 21.69 mL/min Estimated GFR (MDRD) 33 (>60) mL/min BUN/Creatinine Ratio 18.0 (14-18) Glucose 92 (83-115) mg/dL Calcium 9.4 (8.5-10.1) mg/dL Total Bilirubin 0.4 (0.2-1.0) mg/dL AST 17 (15-37) U/L ALT 19 (14-59) U/L Alkaline Phosphatase 74 (46-116) U/L Troponin I < 0.017 (0.00-0.056) ng/mL Total Protein 8.3 H (6.4-8.2) g/dl Albumin 3.6 (3.4-5.0) g/dl Globulin 4.7 gm/dL Albumin/Globulin Ratio 0.8 L (1-2) Meds: Medications Generic Name Dose Route Start Last Admin Trade Name Freq PRN Reason Stop Dose Admin Acetaminophen 650 mg 08/19/18 08:15 08/19/18 09:34 Tylenol PO 650 mg Q4H PRN Administration Pain (Mild 1-3)/fever Hydrocodone Bitart/Acetaminophen 1 tab 08/19/18 08:15 08/19/18 11:24 Marina 325-5 Mg PO 1 tab Q4H PRN Administration Pain (moderate 4-6) Alprazolam 0.5 mg 08/19/18 08:20 08/19/18 09:30 Xanax PO 0.5 mg BID PRN Administration Anxiety Amlodipine Besylate 5 mg 08/19/18 09:00 08/19/18 09:31 Norvasc PO 5 mg DAILY [facility] Administration Aspirin 81 mg 08/19/18 09:00 08/19/18 09:31 Halfprin PO 81 mg DAILY [facility] Administration Bisacodyl 5 mg 08/19/18 08:15 Dulcolax PO DAILY PRN Constipation Calcium Carbonate/Glycine 1,200 mg 08/19/18 10:00 08/19/18 09:31 Calcium Carbonate PO 1,200 mg DAILY [facility] Administration Cholecalciferol 3,000 units 08/19/18 09:00 08/19/18 09:31 Vitamin D3 PO 3,000 units DAILY [facility] Administration Citalopram Hydrobromide 40 mg 08/20/18 21:00 Celexa PO BEDTIME [facility] Famotidine 20 mg 08/20/18 09:00 Pepcid PO DAILY [facility] Hydrocortisone 0 gm 08/19/18 09:00 08/19/18 11:15 Hydrocortisone 1% Crm TOP 1 applic BID [facility] Administration Hydrocortisone Acetate 25 mg 08/19/18 09:00 08/19/18 09:40 Anucort-Hc RECTAL 25 mg BID [facility] Administration Levofloxacin 250 mg 08/19/18 08:30 08/19/18 09:30 Levaquin PO 08/23/18 09:05 250 mg Q24H [facility] Administration Levothyroxine Sodium 125 mcg 08/19/18 09:00 08/19/18 09:30 Levothyroxine PO 125 mcg ACBREAKFAST [facility] Administration Lidocaine HCl 0 ml 08/19/18 08:30 08/19/18 13:23 Xylocaine 2% Jelly TOP 1 applic ASDIRECTED [facility] Administration Methocarbamol 1,000 mg 08/19/18 08:28 Robaxin PO Q6H PRN Pain Ondansetron HCl 4 mg 08/19/18 08:15 08/19/18 16:26 Zofran Odt PO 4 mg Q4H PRN Administration nausea, able to take PO Sodium Chloride 10 ml 08/18/18 17:59 08/18/18 18:54 Saline Flush FLUSH 10 ml ONETIME PRN Administration KEEP VEIN OPEN Discontinued Medications Generic Name Dose Route Start Last Admin Trade Name Freq PRN Reason Stop Dose Admin Citalopram Hydrobromide 40 mg 08/19/18 14:00 08/19/18 13:42 Celexa PO 08/19/18 14:01 40 mg ONETIME ONE Administration Famotidine 20 mg 08/19/18 09:30 08/19/18 09:44 Pepcid PO 20 mg BID [facility] Administration Hydralazine HCl 10 mg 08/18/18 18:17 08/18/18 18:37 Apresoline IVPUSH 08/18/18 18:18 5 mg ONETIME ONE Administration Hydralazine HCl 10 mg 08/18/18 19:21 08/18/18 19:26 Apresoline IVPUSH 08/18/18 19:22 5 mg ONETIME ONE Administration Sodium Chloride 1,000 mls @ 125 mls/hr 08/18/18 18:00 08/19/18 09:11 Normal Saline IV Infused ASDIRECTED [facility] Infusion Sodium Chloride 100 mls @ 80 mls/hr 08/18/18 18:00 08/18/18 18:53 Normal Saline IV 80 mls/hr ASDIRECTED [facility] Administration Nicardipine HCl 25 mg/ Sodium 260 mls @ 52 mls/hr 08/18/18 19:45 08/19/18 09: 48 Chloride IV 0 mg/hr TITRATE [facility] 0 mls/hr Titration Protocol 5 MG/HR Nicardipine HCl 25 mg/ Sodium 250 mls @ 50 mls/hr 08/19/18 07:38 Chloride IV TITRATE [facility] Protocol 5 MG/HR Potassium Chloride 10 meq/ 100 mls @ 100 mls/hr 08/19/18 16:30 08/19/18 18:49 Premix IV 08/19/18 18:29 100 mls/hr Q1H [facility] Administration Iohexol 100 ml 08/18/18 17:57 08/18/18 18:53 Omnipaque IVPUSH 08/18/18 17:58 100 ml ONETIME ONE Administration Morphine Sulfate 2 mg 08/18/18 17:58 08/18/18 18:06 Morphine IVPUSH 08/18/18 17:59 Not Given ONETIME ONE Morphine Sulfate 4 mg 08/18/18 18:01 08/18/18 18:04 Morphine IV 08/18/18 18:02 2 mg ONETIME ONE Administration - Re-Assessments/Exams Free Text/Narrative Re-Assessment/Exam: 08/18/18 18:52 Patient situation is somewhat concerning with this sharp pain between her shoulder blades and elevated hypertension trying to corner her down as to whether the pain is there all the time comes and goes is a little different seems to be aggravated with change of position however none this can be pinned down with certainty. Patient denies significant history of hypertension however she's on Cozaar 25 mg a day the dental she's taken for blood pressure. CT was ordered. Labs reviewed of concern is the patient's EUA and had been running between 10 and 15 with a creatinine of 0.7-0.8 this last year now her BUNs 27 creatinine is up to 1.5 estimated GFR is down to 33 from greater than 60. It was determined best to go ahead and check CT angios especially with a mildly elevated d-dimer. Results of this are pending 08/18/18 19:12 08/18/18 19:50 CTA showed no pulmonary embolism no dissection. She has some aneurysmal dilation up to 3.8 cm in the ascending aorta 3.4 cm in the descending aorta this resolves before the abdominal aorta. She's got an area of scar tissue upper right lung posterior. This should be rechecked to ensure stability in 6 months. Her blood pressure has worked its way back up to 190s systolic case discussed with our hospitalist the patient be started on a nicardipine drip. She 'll continue to receive IV fluids as she is somewhat prerenal with deteriorating renal function and did receive IV contrast. Case discussed with . Departure - Departure Time of Disposition: 19:52 Disposition: Admitted As Inpatient 67 Clinical Impression: Hypertensive urgency, Thoracic back pain - Discharge Information
[2018-08-18] MEDS ORDERED: Iohexol 350 MG/ML 75 ML Bottle IVPUSH ONE (17:57)
[2018-08-18] MEDS ORDERED: Morphine 4 MG/ML Syringe IVPUSH ONE (17:58)
[2018-08-18] MEDS: Sodium Chloride 0.9% 1,000 ML IV SCH (17:59)
[2018-08-18] MEDS ORDERED: Sodium Chloride 0.9% 100 ML IV SCH (18:00)
[2018-08-18] MEDS: Sodium Chloride 0.9% 10 ML Syringe FLUSH PRN ×2 (18:07→18:54)
[2018-08-18] MEDS: hydrALAZINE 20 MG/ML SDV IVPUSH ONE ×2 (18:31→18:37)
[2018-08-18] MEDS ORDERED: hydrALAZINE 20 MG/ML SDV IVPUSH ONE (19:21)
--- NOTE | 2018-08-18 19:31 | CT ---
CT chest Technique: Multiple axial sections were obtained aortic angiogram protocol. Intravenous contrast was utilized. Comparison: Prior chest CT Findings: Ascending aorta is mildly aneurysmal at 3.8 cm in AP dimension. No dissection is seen. Descending aorta has an AP dimension of 3.4 cm. these findings are fairly stable from prior exam. Very minimal fluid is seen within the pericardial space. Heart is mildly enlarged. Mediastinum shows small lymph nodes which are felt to be within normal limits. No axillary adenopathy is seen. Slight scarring noted within both lung bases. Slight parenchymal density noted within the right upper lung most likely representing additional scarring although there is a nodular area within this density measuring 1.8 cm for which follow-up will be needed. Bone window settings show scattered degenerative spurring within the spine with evidence prior vertebroplasty. Several old healed rib fractures seen with the left chest. Pulmonary arteries show no filling defects of pulmonary embolism. Impression: 1. Aneurysmal dilatation of the ascending aorta measuring 3.8 cm in AP dimension. Descending aorta has an AP dimension of 3.4 cm. No dissection is seen. These findings are fairly stable from prior exam. 2. Area of scarring within the right upper lung containing a nodular area measuring 1.8 cm. This finding is stable from previous CT exam. 3. Other incidental findings. Nothing acute is seen. Diagnostic code #2
--- NOTE | 2018-08-18 19:31 | CT ---
CT abdomen and pelvis Technique: Multiple axial sections were obtained from above the dome of the diaphragm inferiorly through the pubic symphysis. Intravenous contrast was utilized. No oral contrast has been given. Study performed during the arterial phase. Comparison: Prior CT abdomen and pelvis exam of 03/03/12. Findings: Liver contains no focal abnormality. Gallbladder contains no calcified gallstones. Cysts are seen within the left kidney. Th the cysts tanya have slightly increased in number from previous exam. Calcifications are seen within the cysts which are felt to be fairly stable. Right kidney appears unremarkable. Pancreas is normal. Aorta shows no aneurysm. No retroperitoneal adenopathy is seen. Celiac axis and superior mesenteric arteries are felt to be patent. Single renal arteries are seen which appear to be patent. Inferior mesenteric artery is patent. Internal and external iliac arteries are patent. No retroperitoneal adenopathy or mesenteric abnormalities are seen. No pelvic mass or adenopathy is seen. No free fluid or inflammatory change is seen. Mild degenerative change is scattered within the spine. Impression: 1. Findings which are felt to be incidental as noted above. No aortic abnormality is seen. Diagnostic code #2
[2018-08-18] MEDS: niCARdipine HCl 25 MG in Sodium Chloride 0.9% 250 ML IV SCH (19:54)
[2018-08-19] MEDS: Sodium Chloride 0.9% 1,000 ML IV SCH (00:17)
[2018-08-19] MEDS: niCARdipine HCl 25 MG in Sodium Chloride 0.9% 250 ML IV SCH (05:12)
[2018-08-19] MEDS ORDERED: niCARdipine HCl 25 MG in Sodium Chloride 0.9% 240 ML IV SCH (07:38)
[2018-08-19] MEDS ORDERED: Bisacodyl 5 MG Tab PO PRN (08:15)
[2018-08-19] MEDS ORDERED: Ondansetron 4 MG Tab.DIS PO PRN (08:15)
[2018-08-19] MEDS ORDERED: Acetaminophen/HYDROcodone 325-5 MG Tab PO PRN (08:15)
[2018-08-19] MEDS ORDERED: Acetaminophen 325 MG Tab PO PRN (08:15)
[2018-08-19] MEDS ORDERED: ALPRAZolam 0.5 MG Tab PO PRN (08:20)
[2018-08-19] MEDS ORDERED: Methocarbamol 500 MG Tab PO PRN (08:28)
[2018-08-19] MEDS ORDERED: Lidocaine 2% Jelly 5 ML Tube TOP SCH (08:30)
[2018-08-19] MEDS ORDERED: amLODIPine 5 MG Tab PO SCH (09:00)
--- NOTE | 2018-08-19 09:05 | CR ---
Chest: Two views of the chest were obtained. Comparison: Previous chest x-ray of 06/27/17. Heart is slightly enlarged. Tortuous thoracic aorta is seen. Lung markings mildly increased which appear chronic. No acute parenchymal changes seen. Lungs are hyperinflated compatible with emphysematous change. Bony structures are osteopenic. Scoliosis noted within the spine. Two levels of vertebroplasty are noted. Impression: 1. Incidental findings. Nothing acute is appreciated. Diagnostic code #2
[2018-08-19] MEDS: Levothyroxine 125 MCG Tab PO SCH (09:30)
[2018-08-19] MEDS: Levofloxacin 250 MG Tab PO SCH (09:30)
[2018-08-19] MEDS ORDERED: Famotidine 20 MG Tab PO SCH (09:30)
[2018-08-19] MEDS: Aspirin 81 MG Tab.EC PO SCH (09:31)
[2018-08-19] MEDS: Calcium Carbonate 600 MG Tab PO SCH (09:31)
[2018-08-19] MEDS: Cholecalciferol (Vitamin D3) 1,000 Unit Tab PO SCH (09:31)
[2018-08-19] MEDS: Hydrocortisone Acetate 25 MG Supp RECTAL SCH ×2 (09:40→10:00)
[2018-08-19] MEDS: Hydrocortisone 1% Crm 30 GM Tube TOP SCH ×2 (11:15→21:18)
[2018-08-19] MEDS ORDERED: Citalopram 20 MG Tab PO ONE (14:00)
--- NOTE | 2018-08-19 15:13 | PCM.HP ---
H&P History of Present Illness - General Date of Service: 08/19/18 Admit Problem/Dx: Admission Diagnosis/Problem Admission Diagnosis/Problem Hypertension Source of Information: Patient, Family, Provider - History of Present Illness Initial Comments - Free Text/Narative: This 82-year-old female presented to the emergency room last night with complaints of mid upper thoracic back pain. Patient is a poor historian. She states that it started after eating breakfast. She became more tired and worsening pain. She states it was sharp and severe. She tried to lay down, used cold and hot compresses and she had no improvement. She did try Tylenol without improvement either. Patient is on meloxicam for chronic pain due to a fall in 2011. Patient fell off a ladder and had several rib fractures and compression fractures. She did receive kyphoplasty. She also fell another time approximately 1-2 months ago, but no reported significant injury or fracture at that time. She does report an increase in her Xanax a few days ago because of worsening anxiety. She is also on Lexapro for anxiety. Patient denies any trauma or increased activity that may be causing her pain. Patient denies any shortness of breath, pain with inspiration, it does hurt with moving. Does not have any increased leg swelling. She denies any chest pain , orthopnea, or PND. In the emergency room she was found to have a significantly elevated blood pressure initially 192/98. D-dimer was performed and it was a mildly elevated so a CT scan of the chest to rule out dissecting aneurysm and pulmonary embolism was done. There was no PE but patient did have a stable ascending aortic aneurysm of 3.8 cm. Descending aorta has an AP diameter of 3.4 cm. Of note there was an area of scarring within the right upper lung containing a nodular area measuring 1.8 cm. This finding is stable from previous CT scan. Creatinine was increased to 1.5 from her baseline of 0.7-0.8 last year. He was felt with her elevated blood pressure and acute kidney injury that she will should be admitted. She was placed in the ICU on an a cart appearing drip. Overnight she had a nice decrease of her blood pressure down to the 120s to 140s. Upper Back Pain Score (Numeric/FACES): 2 - Related Data Allergies/Adverse Reactions: Allergies Allergy/AdvReac Type Severity Reaction Status Date / Time adhesive tape Allergy Cannot Verified 08/18/18 16:48 Remember Sulfa (Sulfonamide Allergy Cannot Verified 08/18/18 16:48 Antibiotics) Remember buspirone HCl [From BuSpar] AdvReac Mild Insomnia Verified 08/18/18 16:48 Home Medications: Home Meds Denosumab [Prolia] 60 mg INJECT Q6M 10/08/15 [History] Levothyroxine 125 mcg PO DAILY 10/08/15 [History] Calcium Carbonate 1,500 mg PO DAILY 09/17/16 [History] Cholecalciferol (Vitamin D3) [Vitamin D3] 3,000 units PO DAILY 09/17/16 [History ] Estradiol [Estrace 0.01% Vaginal Crm] 1 applic VAG ASDIRECTED 09/17/16 [History] Lidocaine 2% [Xylocaine 2% Jelly] 1 applic TOP ASDIRECTED 09/17/16 [History] Sennosides/Docusate Sodium [Senna-Docusate Sodium] 2 tab PO BEDTIME 09/17/16 [ History] Lactobacillus Acidophilus [Probiotic] 1 each PO DAILY #90 capsule 09/18/16 [Rx] Hydrocortisone Acetate [Anusol-Hc] 25 mg RC BEDTIME 06/05/17 [History] Losartan [Cozaar] 25 mg PO DAILY 06/05/17 [History] Polyethylene Glycol 3350 [MiraLAX] 17 gm PO DAILY PRN 06/05/17 [History] Rectal Rocket 1 dose RECTAL ASDIRECTED PRN 06/05/17 [History] ALPRAZolam [Xanax] 1 tab PO BID PRN 11/29/17 [History] Acetaminophen 325 mg PO Q4HR 08/19/18 [History] Ascorbic Acid 500 mg PO DAILY 08/19/18 [History] Aspirin [Adult Low Dose Aspirin EC] 81 mg PO DAILY 08/19/18 [History] Escitalopram [Lexapro] 20 mg PO BEDTIME 08/19/18 [History] Hydrocortisone [Hydrocortisone 1% Crm] 28.4 gm TOP BID 08/19/18 [History] Magnesium Oxide [Magnesium] 0 mg PO DAILY 08/19/18 [History] Meloxicam 7.5 mg PO WITHBREAKFAST 08/19/18 [History] Triamcinolone Acetonide [Triamcinolone Acetonide 0.1% Crm] 1 applic TOP BID 11/30 [History] Past Medical History HEENT History: Reports: Cataract, Impaired Vision Other HEENT History: corneal ulcer, wears glasses Cardiovascular History: Reports: Aneurysm, High Cholesterol, Hypertension Other Cardiovascular History: 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) Respiratory History: Reports: Other (See Below) Other Respiratory History: pulmonary nodules (patient denies) Gastrointestinal History: Reports: Hemorrhoids Other Gastrointestinal History: LUQ pain, nausea/vomiting, lower abdominal pain Genitourinary History: Reports: Renal Calculus, Urinary Incontinence [employer] SC[employer]PTOR History: Reports: Musculoskeletal History: Reports: Fracture, Osteoporosis Other Musculoskeletal History: degnerative joint disease, fracture to back and two ribs Neurological History: Reports: None Psychiatric History: Reports: Anxiety, Depression, Other (See Below) Other Psychiatric History: fatigue Endocrine/Metabolic History: Reports: Hypothyroidism, Osteoporosis Hematologic History: Reports: Other (See Below) Other Hematologic History: pancytopenia Immunologic History: Reports: None Oncologic (Cancer) History: Reports: None Dermatologic History: Reports: Eczema Other Dermatologic History: atypical nevus - Infectious Disease History Infectious Disease History: Reports: Measles, Shingles - Past Surgical History HEENT Surgical History: Reports: Cataract Surgery, Oral Surgery Other HEENT Surgeries/Procedures: Dentures upper and lower Cardiovascular Surgical History: Reports: None GI Surgical History: Reports: Appendectomy, Colonoscopy Female Surgical History: Reports: Hysterectomy, Lithotripsy/ESWL, Tubal Ligation Endocrine Surgical History: Reports: Parathyroidectomy Musculoskeletal Surgical History: Reports: Other (See Below) Other Musculoskeletal Surgeries/Procedures:: kyphoplasty. Social & Family History - Family History Endocrine/Metabolic: Reports: Other (See Below) Other Endocrine/Metabolic Family History: Pt mother had thyroid medical issues. - Tobacco Use Smoking Status *Q: Former Smoker Years of Tobacco use: 58 Packs/Tins Daily: 0.5 Used Tobacco, but Quit: No Tobacco Use Comment: Smoked since highschool, 0.5 opacks per day now, without smoking during all 5 pregnancies. Second Hand Smoke Exposure: No - Caffeine Use Caffeine Use: Reports: Coffee, Tea - Alcohol Use Days Per Week of Alcohol Use: 2 Number of Drinks Per Day: 1 Total Drinks Per Week: 2 Date of Last Drink: 08/09/18 - Recreational Drug Use Recreational Drug Use: No - Living Situation & Occupation Living situation: Reports: ( states that all of her problems " are in her head."), with Spouse Occupation: Retired H&P Review of Systems - Review of Systems: Review Of Systems: ROS reveals no pertinent complaints other than HPI. Exam - Exam Exam: See Below - Vital Signs Vital Signs: Last Vital Signs Temp 98.4 F 08/19/18 13:58 Pulse 88 08/19/18 00:01 Resp 16 08/19/18 13:58 BP 142/86 H 08/19/18 13:58 Pulse Ox 100 08/19/18 13:58 Weight: 132 lb 4.8 oz - Exam General: Alert, Oriented HEENT: Conjunctiva Clear, Mucosa Moist & [place], Nares Patent, Posterior Pharynx Clear Neck: Supple, Trachea Midline Lungs: Clear to Auscultation, Normal Respiratory Effort Cardiovascular: Regular Rate, Regular Rhythm GI/Abdominal Exam: Normal Bowel Sounds, Soft, Non-Tender, No Organomegaly, No Distention Back Exam: Normal Inspection, Paraspinal Tenderness. No: CVA Tenderness (L), CVA Tenderness (R), Muscle Spasm Extremities: Normal Inspection, Normal Range of Motion, Non-Tender, No Pedal Edema Skin: Warm, Dry, Intact Neurological: Cranial Nerves Intact Neuro Extensive - Mental Status: Alert, Normal Mood/Affect Neuro Extensive - Motor, Sensory, Reflexes: CN II-XII Intact Psychiatric: Alert, Normal Affect - Patient Data Lab Results Last 24 hrs: Laboratory Results - last 24 hr 08/18/18 08/18/18 08/18/18 Range/Units 17:20 17:20 17:20 WBC 4.61 (3.98-10.04) K/mm3 RBC 3.72 L (3.98-5.22) M/mm3 Hgb 11.9 (11.2-15.7) gm/L Hct 35.9 (34.1-44.9) % MCV 96.5 H (79.4-94.8) fl MCH 32.0 (25.6-32.2) pg MCHC 33.1 (32.2-35.5) g/dl RDW Std Deviation 44.5 (36.4-46.3) fL Plt Count 142 L (182-369) K/mm3 MPV 11.5 (9.4-12.3) fl Neut % (Auto) (34.0-71.1) % Lymph % (Auto) (19.3-51.7) % [place] % (Auto) (4.7-12.5) % Eos % (Auto) (0.7-5.8) Baso % (Auto) (0.1-1.2) % Neut # (Auto) (1.56-6.13) K/mm3 Lymph # (Auto) (1.18-3.74) K/mm3 [place] # (Auto) (0.24-0.36) K/mm3 Eos # (Auto) (0.04-0.36) K/mm3 Baso # (Auto) (0.01-0.08) K/mm3 Neutrophils % (Manual) 67 H (40-60) % Band Neutrophils % 0 (0-10) % Lymphocytes % (Manual) 26 (20-40) % Atypical Lymphs % 0 % Monocytes % (Manual) 4 (2-10) % Eosinophils % (Manual) 2 (0.7-5.8) % Basophils % (Manual) 1 (0.1-1.2) Platelet Estimate Adequate Plt Morphology Comment Normal RBC Morph Comment Normal PT 10.9 (9.5-12.1) SECONDS INR 1.00 APTT 23 L (24-31) SECONDS D-Dimer, Quantitative 1.10 H (0.19-0.50) mg/L Sodium 139 (136-145) mEq/L Potassium 3.7 (3.5-5.1) mEq/L Chloride 104 (98-107) mEq/L Carbon Dioxide 25 (21-32) mEq/L Anion Gap 13.7 (5-15) BUN 27 H (7-18) mg/dL Creatinine 1.5 H (0.55-1.02) mg/dL Est Cr Clr Drug Dosing 21.69 mL/min Estimated GFR (MDRD) 33 (>60) mL/min BUN/Creatinine Ratio 18.0 (14-18) Glucose 92 (83-115) mg/dL Calcium 9.4 (8.5-10.1) mg/dL Magnesium (1.8-2.4) mg/dl Total Bilirubin 0.4 (0.2-1.0) mg/dL AST 17 (15-37) U/L ALT 19 (14-59) U/L Alkaline Phosphatase 74 (46-116) U/L Troponin I < 0.017 (0.00-0.056) ng/mL Total Protein 8.3 H (6.4-8.2) g/dl Albumin 3.6 (3.4-5.0) g/dl Globulin 4.7 gm/dL Albumin/Globulin Ratio 0.8 L (1-2) Urine Color (Yellow) Urine Appearance (Clear) Urine pH (5.0-8.0) Ur Specific [place] (1.005-1.030) Urine Protein (Negative) Urine Glucose (UA) (Negative) Urine Ketones (Negative) Urine Occult Blood (Negative) Urine Nitrite (Negative) Urine Bilirubin (Negative) Urine Urobilinogen (0.2-1.0) Ur Leukocyte Esterase (Negative) Urine RBC (0-5) /hpf Urine WBC (0-5) /hpf Urine WBC Clumps (NOT SEEN) /hpf Ur Epithelial Cells (0-5) /hpf Urine Bacteria (FEW) /hpf Urine Mucus (FEW) /hpf 08/18/18 08/19/18 08/19/18 Range/Units 20:05 07:22 07:22 WBC 5.77 (3.98-10.04) K/mm3 RBC 3.71 L (3.98-5.22) M/mm3 Hgb 11.8 (11.2-15.7) gm/L Hct 35.5 (34.1-44.9) % MCV 95.7 H (79.4-94.8) fl MCH 31.8 (25.6-32.2) pg MCHC 33.2 (32.2-35.5) g/dl RDW Std Deviation 44.2 (36.4-46.3) fL Plt Count 135 L (182-369) K/mm3 MPV 11.5 (9.4-12.3) fl Neut % (Auto) 77.3 H (34.0-71.1) % Lymph % (Auto) 15.3 L (19.3-51.7) % [place] % (Auto) 6.8 (4.7-12.5) % Eos % (Auto) 0.2 L (0.7-5.8) Baso % (Auto) 0.2 (0.1-1.2) % Neut # (Auto) 4.47 (1.56-6.13) K/mm3 Lymph # (Auto) 0.88 L (1.18-3.74) K/mm3 [place] # (Auto) 0.39 H (0.24-0.36) K/mm3 Eos # (Auto) 0.01 L (0.04-0.36) K/mm3 Baso # (Auto) 0.01 (0.01-0.08) K/mm3 Neutrophils % (Manual) (40-60) % Band Neutrophils % (0-10) % Lymphocytes % (Manual) (20-40) % Atypical Lymphs % % Monocytes % (Manual) (2-10) % Eosinophils % (Manual) (0.7-5.8) % Basophils % (Manual) (0.1-1.2) Platelet Estimate Plt Morphology Comment RBC Morph Comment PT (9.5-12.1) SECONDS INR APTT (24-31) SECONDS D-Dimer, Quantitative (0.19-0.50) mg/L Sodium 140 (136-145) mEq/L Potassium 3.4 L (3.5-5.1) mEq/L Chloride 106 (98-107) mEq/L Carbon Dioxide 22 (21-32) mEq/L Anion Gap 15.4 H (5-15) BUN 19 H (7-18) mg/dL Creatinine 1.3 H (0.55-1.02) mg/dL Est Cr Clr Drug Dosing 32.15 mL/min Estimated GFR (MDRD) 39 (>60) mL/min BUN/Creatinine Ratio 14.6 (14-18) Glucose 122 H (83-115) mg/dL Calcium 8.6 (8.5-10.1) mg/dL Magnesium 1.8 (1.8-2.4) mg/dl Total Bilirubin 0.4 (0.2-1.0) mg/dL AST 15 (15-37) U/L ALT 16 (14-59) U/L Alkaline Phosphatase 78 (46-116) U/L Troponin I 0.031 (0.00-0.056) ng/mL Total Protein 8.6 H (6.4-8.2) g/dl Albumin 3.6 (3.4-5.0) g/dl Globulin 5.0 gm/dL Albumin/Globulin Ratio 0.7 L (1-2) Urine Color Yellow (Yellow) Urine Appearance Clear (Clear) Urine pH 7.0 (5.0-8.0) Ur Specific [place] 1.015 (1.005-1.030) Urine Protein 1+ H (Negative) Urine Glucose (UA) Negative (Negative) Urine Ketones Negative (Negative) Urine Occult Blood Negative (Negative) Urine Nitrite Negative (Negative) Urine Bilirubin Negative (Negative) Urine Urobilinogen 0.2 (0.2-1.0) Ur Leukocyte Esterase 1+ H (Negative) Urine RBC 0-5 (0-5) /hpf Urine WBC 10-20 H (0-5) /hpf Urine WBC Clumps Few (NOT SEEN) /hpf Ur Epithelial Cells 0-5 (0-5) /hpf Urine Bacteria Moderate H (FEW) /hpf Urine Mucus Rare (FEW) /hpf Result Diagrams: 08/19/18 07:22 08/19/18 07:22 - Problem List (1) Hypertensive urgency SNOMED Code(s): 727587389 ICD Code: I16.0 - HYPERTENSIVE URGENCY Status: Acute Current Visit: Yes (2) Acute renal injury SNOMED Code(s): 25851610, 36516621 ICD Code: N17.9 - ACUTE KIDNEY FAILURE, UNSPECIFIED Status: Acute Current Visit: Yes (3) Thoracic back pain SNOMED Code(s): 726211934 ICD Code: M54.6 - PAIN IN THORACIC SPINE Status: Acute Current Visit: Yes (4) Depression with anxiety SNOMED Code(s): 863943626 ICD Code: F41.8 - OTHER SPECIFIED ANXIETY DISORDERS Status: Acute Current Visit: No (5) UTI, Urinary tract infectious disease SNOMED Code(s): 54370540 ICD Code: N39.0 - URINARY TRACT INFECTION, SITE NOT SPECIFIED Status: Acute Current Visit: No Problem List Initiated/Reviewed/Updated: Yes Orders Last 24hrs: Active Orders 24 hr Category Date Time Status Admission Status [Patient Status] [ADT] Routine ADT 08/18/18 20:03 Active Antiembolic Devices [RC] PER UNIT ROUTINE Care 08/19/18 08:19 Active Cooling Warming Measures [RC] ASDIRECTED Care 08/19/18 08:36 Active Height and Weight [RC] DAILY Care 08/19/18 08:15 Active Intake and Output [RC] QSHIFT Care 08/19/18 08:16 Active Oxygen Therapy [RC] PRN Care 08/19/18 08:15 Active Up ad Doris [RC] ASDIRECTED Care 08/19/18 08:15 Active Vital Signs [RC] Q4H Care 08/19/18 08:15 Active OT Evaluation and Treatment [CONS] Routine Cons 08/19/18 10:26 Active PT Evaluation and Treatment [CONS] Routine Cons 08/19/18 10:25 Active Heart Healthy Diet [DIET] Diet 08/19/18 Breakfast Active Heart Healthy Diet [DIET] Diet 08/19/18 Lunch Active CULTURE URINE [RM] Routine Lab 08/19/18 08:30 Received ALPRAZolam [Xanax] Med 08/19/18 08:20 Active 0.5 mg PO BID PRN Acetaminophen [Tylenol] Med 08/19/18 08:15 Active 650 mg PO Q4H PRN Acetaminophen/HYDROcodone [[place] 325-5 MG] Med 08/19/18 08:15 Active 1 tab PO Q4H PRN Aspirin [Halfprin] Med 08/19/18 09:00 Active 81 mg PO DAILY Bisacodyl [Dulcolax] Med 08/19/18 08:15 Active 5 mg PO DAILY PRN Calcium Carbonate Med 08/19/18 10:00 Active 1,200 mg PO DAILY Cholecalciferol (Vitamin D3) [Vitamin D3] Med 08/19/18 09:00 Active 3,000 units PO DAILY Citalopram [Celexa] Med 08/20/18 21:00 Active 40 mg PO BEDTIME Famotidine [Pepcid] Med 08/20/18 09:00 Active 20 mg PO DAILY Hydrocortisone Acetate [Anucort-HC] Med 08/19/18 09:00 Active 25 mg RECTAL BID Hydrocortisone [Hydrocortisone 1% Crm] Med 08/19/18 09:00 Active 0 gm TOP BID Levothyroxine Med 08/19/18 09:00 Active 125 mcg PO ACBREAKFAST Lidocaine 2% [Xylocaine 2% Jelly] Med 08/19/18 08:30 Active 0 ml TOP ASDIRECTED Methocarbamol [Robaxin] Med 08/19/18 08:28 Active 1,000 mg PO Q6H PRN Ondansetron [Zofran ODT] Med 08/19/18 08:15 Active 4 mg PO Q4H PRN Sodium Chloride 0.9% [Saline Flush] Med 08/18/18 17:59 Active 10 ml FLUSH ONETIME PRN amLODIPine [Norvasc] Med 08/19/18 09:00 Active 5 mg PO DAILY levoFLOXacin [Levaquin] Med 08/19/18 08:30 Active 250 mg PO Q24H Antiembolic Hose [OM.PC] Per Unit Routine Oth 08/19/18 08:17 Ordered K Pad [Heat Therapy] [OM.PC] Routine Oth 08/19/18 08:36 Ordered Resuscitation Status Routine Resus Stat 08/19/18 08:15 Ordered Medication Orders Acetaminophen (Tylenol) 650 mg PO Q4H PRN PRN Reason: Pain (Mild 1-3)/fever Last Admin: 08/19/18 09:34 Dose: 650 mg Hydrocodone Bitart/Acetaminophen ([place] 325-5 Mg) 1 tab PO Q4H PRN PRN Reason: Pain (moderate 4-6) Last Admin: 08/19/18 11:24 Dose: 1 tab Alprazolam (Xanax) 0.5 mg PO BID PRN PRN Reason: Anxiety Last Admin: 08/19/18 09:30 Dose: 0.5 mg Amlodipine Besylate (Norvasc) 5 mg PO DAILY [facility] Last Admin: 08/19/18 09:31 Dose: 5 mg Aspirin (Halfprin) 81 mg PO DAILY [facility] Last Admin: 08/19/18 09:31 Dose: 81 mg Bisacodyl (Dulcolax) 5 mg PO DAILY PRN PRN Reason: Constipation Calcium Carbonate/Glycine (Calcium Carbonate) 1,200 mg PO DAILY [facility] Last Admin: 08/19/18 09:31 Dose: 1,200 mg Cholecalciferol (Vitamin D3) 3,000 units PO DAILY [facility] Last Admin: 08/19/18 09:31 Dose: 3,000 units Citalopram Hydrobromide (Celexa) 40 mg PO BEDTIME [place] Famotidine (Pepcid) 20 mg PO DAILY [facility] Hydrocortisone (Hydrocortisone 1% Crm) 0 gm TOP BID [facility] Last Admin: 08/19/18 11:15 Dose: 1 applic Hydrocortisone Acetate (Anucort-Hc) 25 mg RECTAL BID [facility] Last Admin: 08/19/18 09:40 Dose: 25 mg Levofloxacin (Levaquin) 250 mg PO Q24H [facility] Stop: 08/23/18 09:05 Last Admin: 08/19/18 09:30 Dose: 250 mg Levothyroxine Sodium (Levothyroxine) 125 mcg PO ACBREAKFAST [facility] Last Admin: 08/19/18 09:30 Dose: 125 mcg Lidocaine HCl (Xylocaine 2% Jelly) 0 ml TOP ASDIRECTED [facility] Last Admin: 08/19/18 13:23 Dose: 1 applic Methocarbamol (Robaxin) 1,000 mg PO Q6H PRN PRN Reason: Pain Ondansetron HCl (Zofran Odt) 4 mg PO Q4H PRN PRN Reason: nausea, able to take PO Sodium Chloride (Saline Flush) 10 ml FLUSH ONETIME PRN PRN Reason: KEEP VEIN OPEN Last Admin: 08/18/18 18:54 Dose: 10 ml Admin: 08/18/18 18:07 Dose: 10 ml Assessment/Plan Comment:: Hypertensive urgency * Nicardipine drip started in the emergency room and weaned off over the first 15 hours. * Switched to amlodipine 5 mg by mouth. * Hold patient's Cozaar 25 mg daily until renal function stabilizes * Monitor in ICU initially. Acute renal injury * Initial creatinine 1.5 now down to 1.3 * Avoid NSAIDs * Lower blood pressure * Repeat CMP in the morning * Hold Cozaar until improved Thoracic back pain * Start [place] 5/325 one tab every 4 hours when necessary pain. * Robaxin 1000 mg 3 times a day if needed. * Patient's blood pressure may be secondarily worsened due to her back pain. Anxiety and depression * Restart home medication including Xanax and SSRI. * This could also worsen hypertension. Ascending aortic aneurysm without dissection * 3.8 cm dilatation * Follow as outpatient Right upper lung nodule - 1.8 cm nodule * Will need continued follow-up as outpatient. Length of stay should be less than 96 hours. CODE STATUS: Full code
[2018-08-19] MEDS: Potassium Chloride 10 MEQ in Premix Bag 1 BAG IV SCH ×2 (18:49→19:55)
[2018-08-19] MEDS ORDERED: Melatonin 3 MG Tab PO PRN (19:47)
[2018-08-19] MEDS: amLODIPine 5 MG Tab PO SCH (21:19)
[2018-08-20] MEDS: Hydrocortisone Acetate 25 MG Supp RECTAL SCH ×2 (00:22→08:28)
[2018-08-20] MEDS: Levothyroxine 125 MCG Tab PO SCH (06:23)
[2018-08-20] MEDS: amLODIPine 5 MG Tab PO SCH (08:25)
[2018-08-20] MEDS: Levofloxacin 250 MG Tab PO SCH (08:25)
[2018-08-20] MEDS: Aspirin 81 MG Tab.EC PO SCH (08:27)
[2018-08-20] MEDS: Cholecalciferol (Vitamin D3) 1,000 Unit Tab PO SCH (08:27)
[2018-08-20] MEDS: Calcium Carbonate 600 MG Tab PO SCH (08:27)
[2018-08-20] MEDS: Hydrocortisone 1% Crm 30 GM Tube TOP SCH (08:28)
[2018-08-20] MEDS ORDERED: Famotidine 20 MG Tab PO SCH (09:00)
[2018-08-20] MEDS ORDERED: Potassium Chloride 20 MEQ Tab.ER PO ONE (09:30)
[2018-08-20 10:53] VITALS: BP 161/82
--- NOTE | 2018-08-20 12:33 | PCM.DCSUM1 ---
Discharge Summary - Hospital Course HPI Initial Comments: This 82-year-old female presented to the emergency room last night with complaints of mid upper thoracic back pain. Patient is a poor historian. She states that it started after eating breakfast. She became more tired and worsening pain. She states it was sharp and severe. She tried to lay down, used cold and hot compresses and she had no improvement. She did try Tylenol without improvement either. Patient is on meloxicam for chronic pain due to a fall in 2011. Patient fell off a ladder and had several rib fractures and compression fractures. She did receive kyphoplasty. She also fell another time approximately 1-2 months ago, but no reported significant injury or fracture at that time. She does report an increase in her Xanax a few days ago because of worsening anxiety. She is also on Lexapro for anxiety. Patient denies any trauma or increased activity that may be causing her pain. Patient denies any shortness of breath, pain with inspiration, it does hurt with moving. Does not have any increased leg swelling. She denies any chest pain , orthopnea, or PND. In the emergency room she was found to have a significantly elevated blood pressure initially 192/98. D-dimer was performed and it was a mildly elevated so a CT scan of the chest to rule out dissecting aneurysm and pulmonary embolism was done. There was no PE but patient did have a stable ascending aortic aneurysm of 3.8 cm. Descending aorta has an AP diameter of 3.4 cm. Of note there was an area of scarring within the right upper lung containing a nodular area measuring 1.8 cm. This finding is stable from previous CT scan. Creatinine was increased to 1.5 from her baseline of 0.7-0.8 last year. He was felt with her elevated blood pressure and acute kidney injury that she will should be admitted. She was placed in the ICU on an a cart appearing drip. Overnight she had a nice decrease of her blood pressure down to the 120s to 140s. Brief History: Patient had an uneventful hospital course. After weaning off of the nicardipine drip patient was placed on Norvasc 5 mg twice a day. Blood pressures maintained between 140 and 160 systolic. Patient will be discharged and she can restart her Cozaar. Patient was counseled to stop all nonsteroidal anti-inflammatories secondary to her acute renal injury. Diagnosis: Stroke: No - Discharge Data Discharge Date: 08/20/18 Discharge Disposition: Home, Self-Care 01 Condition: Good - Discharge Diagnosis/Problem(s) (1) Hypertensive urgency SNOMED Code(s): 183904356 ICD Code: I16.0 - HYPERTENSIVE URGENCY Status: Acute Current Visit: Yes (2) Acute renal injury SNOMED Code(s): 20701983, 63763573 ICD Code: N17.9 - ACUTE KIDNEY FAILURE, UNSPECIFIED Status: Acute Current Visit: Yes (3) Thoracic back pain SNOMED Code(s): 611713217 ICD Code: M54.6 - PAIN IN THORACIC SPINE Status: Acute Current Visit: Yes (4) Depression with anxiety SNOMED Code(s): 101779999 ICD Code: F41.8 - OTHER SPECIFIED ANXIETY DISORDERS Status: Acute Current Visit: No (5) UTI, Urinary tract infectious disease SNOMED Code(s): 80262746 ICD Code: N39.0 - URINARY TRACT INFECTION, SITE NOT SPECIFIED Status: Acute Current Visit: No (6) Lung nodule < 6cm on CT SNOMED Code(s): 752882194, 081310567 ICD Code: R91.1 - SOLITARY PULMONARY NODULE Status: Acute Current Visit: Yes - Patient Summary/Data Consults: Consultations 08/19/18 10:25 PT Evaluation and Treatment [CONS] Routine 08/19/18 10:26 OT Evaluation and Treatment [CONS] Routine - Patient Instructions Diet: Heart Healthy Diet Activity: As Tolerated Driving: Do Not Drive Showering/Bathing: May Shower - Discharge Plan *PRESCRIPTION DRUG MONITORING PROGRAM REVIEWED*: Not Applicable *COPY OF PRESCRIPTION DRUG MONITORING REPORT IN PATIENT FRANCISCO: Not Applicable Prescriptions/Med Rec: Acetaminophen/HYDROcodone [Meraux 325-5 MG] 1 tab PO Q4H PRN #5 tablet PRN Reason: Pain (Moderate 4-6) amLODIPine [Norvasc] 5 mg PO BID #60 tablet levoFLOXacin [Levaquin] 250 mg PO Q24H #3 tablet Home Medications: Home Meds Denosumab [Prolia] 60 mg INJECT Q6M 10/08/15 [History] Levothyroxine 125 mcg PO DAILY 10/08/15 [History] Calcium Carbonate 1,500 mg PO DAILY 09/17/16 [History] Cholecalciferol (Vitamin D3) [Vitamin D3] 3,000 units PO DAILY 09/17/16 [History ] Estradiol [Estrace 0.01% Vaginal Crm] 1 applic VAG ASDIRECTED 09/17/16 [History] Lidocaine 2% [Xylocaine 2% Jelly] 1 applic TOP ASDIRECTED 09/17/16 [History] Sennosides/Docusate Sodium [Senna-Docusate Sodium] 2 tab PO BEDTIME 09/17/16 [ History] Lactobacillus Acidophilus [Probiotic] 1 each PO DAILY #90 capsule 09/18/16 [Rx] Hydrocortisone Acetate [Anusol-Hc] 25 mg RC BEDTIME 06/05/17 [History] Losartan [Cozaar] 25 mg PO DAILY 06/05/17 [History] Polyethylene Glycol 3350 [MiraLAX] 17 gm PO DAILY PRN 06/05/17 [History] Rectal Rocket 1 dose RECTAL ASDIRECTED PRN 06/05/17 [History] ALPRAZolam [Xanax] 1 tab PO BID PRN 11/29/17 [History] Acetaminophen 325 mg PO Q4HR 08/19/18 [History] Aspirin [Adult Low Dose Aspirin EC] 81 mg PO DAILY 08/19/18 [History] Escitalopram [Lexapro] 20 mg PO BEDTIME 08/19/18 [History] Hydrocortisone [Hydrocortisone 1% Crm] 28.4 gm TOP BID 08/19/18 [History] Magnesium Oxide [Magnesium] 0 mg PO DAILY 08/19/18 [History] Triamcinolone Acetonide [Triamcinolone Acetonide 0.1% Crm] 1 applic TOP BID 11/30 [History] Acetaminophen [Tylenol] 650 mg PO Q4H PRN tablet 08/20/18 [Rx] Acetaminophen/HYDROcodone [Meraux 325-5 MG] 1 tab PO Q4H PRN #5 tablet 08/20/18 [ Rx] amLODIPine [Norvasc] 5 mg PO BID #60 tablet 08/20/18 [Rx] levoFLOXacin [Levaquin] 250 mg PO Q24H #3 tablet 08/20/18 [Rx] Oxygen Therapy Mode: Room Air Patient Handouts: Steps to Quit Smoking Forms: ED Department Discharge Referrals: Keny Avila MD [Primary Care Provider] - - Discharge Summary/Plan Comment DC Time >30 min.: Yes Discharge Summary/Plan Comment: Hypertensive urgency * Nicardipine drip started in the emergency room and weaned off over the first 15 hours. * Switched to amlodipine 5 mg by mouth. * Hold patient's Cozaar 25 mg daily until renal function stabilizes * Monitor in ICU initially. Acute renal injury * Initial creatinine 1.5 now down to 1.2. Baseline in Jan 2018 0.8. * Avoid NSAIDs * Lower blood pressure * Restart Cozaar as outpatient * CMP in 3-5 days Thoracic back pain * Discharge on Meraux 5/325 one tab every 4 hours when necessary pain, #5 tabs. Not to be taken with Xanax. Discussed with patient and . * Robaxin 1000 mg 3 times a day if needed. * Patient's blood pressure may be secondarily worsened due to her back pain. Anxiety and depression * Continue home medication. * This could also have worsened her hypertension. Ascending aortic aneurysm without dissection * 3.8 cm dilatation * Follow as outpatient Right upper lung nodule - 1.8 cm nodule * Will need continued follow-up as outpatient. Urinary tract infection * Gram-positive cocci consistent with enterococcus * Finish 5 days of Levaquin 250 mg daily. 3 tablets were sent to the pharmacy. - General Info Date of Service: 08/20/18 Admission Dx/Problem (Free Text: Admission Diagnosis/Problem Admission Diagnosis/Problem Hypertensive Emergency Subjective Update: After discussing patient's medication use with her today she informed me that she takes meloxicam, full dose aspirin for pain, and either Aleve or ibuprofen. I explained to her and her that these are likely causing kidney injury. She was counseled to only use Tylenol and if pain is severe she can use the Meraux 5/325 one tab every 4 hours but not if she is going to take a Xanax within 4 hours of the dose of Meraux. Patient and voiced understanding. Pulmonary urine culture demonstrates gram-positive cocci consistent with enterococcus Functional Status: Reports: Pain Controlled - Review of Systems General: Reports: Fatigue, Malaise HEENT: Reports: No Symptoms Pulmonary: Denies: Shortness of Breath, Cough Cardiovascular: Denies: Chest Pain, Palpitations, Dyspnea on Exertion Gastrointestinal: Denies: Abdominal Pain, Constipation Neurological: Reports: No Symptoms Psychiatric: Reports: No Symptoms - Patient Data Vitals - Most Recent: Last Vital Signs Temp 98.4 F 08/20/18 08:33 Pulse 66 08/20/18 08:33 Resp 17 08/20/18 08:33 BP 161/82 H 08/20/18 10:53 Pulse Ox 96 08/20/18 08:33 Weight - Most Recent: 132 lb 4.8 oz I&O - Last 24 hours: Intake & Output 08/19/18 08/20/18 08/20/18 22:59 06:59 14:59 Intake Total 1010 200 300 Output Total 700 250 Balance 310 -50 300 Lab Results - Last 24 hrs: Laboratory Results - last 24 hr 08/20/18 08/20/18 Range/Units 05:50 05:50 WBC 4.81 (3.98-10.04) K/mm3 RBC 3.65 L (3.98-5.22) M/mm3 Hgb 11.5 (11.2-15.7) gm/L Hct 35.5 (34.1-44.9) % MCV 97.3 H (79.4-94.8) fl MCH 31.5 (25.6-32.2) pg MCHC 32.4 (32.2-35.5) g/dl RDW Std Deviation 45.1 (36.4-46.3) fL Plt Count 130 L (182-369) K/mm3 MPV 11.6 (9.4-12.3) fl Neut % (Auto) 67.0 (34.0-71.1) % Lymph % (Auto) 23.3 (19.3-51.7) % [place] % (Auto) 8.7 (4.7-12.5) % Eos % (Auto) 0.4 L (0.7-5.8) Baso % (Auto) 0.6 (0.1-1.2) % Neut # (Auto) 3.22 (1.56-6.13) K/mm3 Lymph # (Auto) 1.12 L (1.18-3.74) K/mm3 [place] # (Auto) 0.42 H (0.24-0.36) K/mm3 Eos # (Auto) 0.02 L (0.04-0.36) K/mm3 Baso # (Auto) 0.03 (0.01-0.08) K/mm3 Sodium 140 (136-145) mEq/L Potassium 3.4 L (3.5-5.1) mEq/L Chloride 105 (98-107) mEq/L Carbon Dioxide 25 (21-32) mEq/L Anion Gap 13.4 (5-15) BUN 15 (7-18) mg/dL Creatinine 1.2 H (0.55-1.02) mg/dL Est Cr Clr Drug Dosing 34.83 mL/min Estimated GFR (MDRD) 43 (>60) mL/min BUN/Creatinine Ratio 12.5 L (14-18) Glucose 104 (83-115) mg/dL Calcium 9.1 (8.5-10.1) mg/dL Magnesium 1.8 (1.8-2.4) mg/dl Total Bilirubin 0.4 (0.2-1.0) mg/dL AST 17 (15-37) U/L ALT 17 (14-59) U/L Alkaline Phosphatase 75 (46-116) U/L Total Protein 8.4 H (6.4-8.2) g/dl Albumin 3.4 (3.4-5.0) g/dl Globulin 5.0 gm/dL Albumin/Globulin Ratio 0.7 L (1-2) TSH 3rd Generation 1.456 (0.358-3.74) uIU/mL JOSE ENRIQUE Results - Last 24 hrs: Microbiology 08/18/18 20:05 Urine Culture - Preliminary Urine, Bladder Gram Positive Cocci Med Orders - Current: Current Medications Acetaminophen (Tylenol) 650 mg PO Q4H PRN PRN Reason: Pain (Mild 1-3)/fever Last Admin: 08/19/18 09:34 Dose: 650 mg Hydrocodone Bitart/Acetaminophen (Meraux 325-5 Mg) 1 tab PO Q4H PRN PRN Reason: Pain (moderate 4-6) Last Admin: 08/19/18 11:24 Dose: 1 tab Alprazolam (Xanax) 0.5 mg PO BID PRN PRN Reason: Anxiety Last Admin: 08/19/18 09:30 Dose: 0.5 mg Amlodipine Besylate (Norvasc) 5 mg PO BID [facility] Last Admin: 08/20/18 08:25 Dose: 5 mg Aspirin (Halfprin) 81 mg PO DAILY [facility] Last Admin: 08/20/18 08:27 Dose: 81 mg Bisacodyl (Dulcolax) 5 mg PO DAILY PRN PRN Reason: Constipation Calcium Carbonate/Glycine (Calcium Carbonate) 1,200 mg PO DAILY [facility] Last Admin: 08/20/18 08:27 Dose: 1,200 mg Cholecalciferol (Vitamin D3) 3,000 units PO DAILY [facility] Last Admin: 08/20/18 08:27 Dose: 3,000 units Citalopram Hydrobromide (Celexa) 40 mg PO BEDTIME [facility] Famotidine (Pepcid) 20 mg PO DAILY [facility] Last Admin: 08/20/18 08:28 Dose: 20 mg Hydrocortisone (Hydrocortisone 1% Crm) 0 gm TOP BID [facility] Last Admin: 08/20/18 08:28 Dose: 1 applic Hydrocortisone Acetate (Anucort-Hc) 25 mg RECTAL BID [facility] Last Admin: 08/20/18 08:28 Dose: 25 mg Levofloxacin (Levaquin) 250 mg PO Q24H [facility] Stop: 08/23/18 09:05 Last Admin: 08/20/18 08:25 Dose: 250 mg Levothyroxine Sodium (Levothyroxine) 125 mcg PO ACBREAKFAST [facility] Last Admin: 08/20/18 06:23 Dose: 125 mcg Lidocaine HCl (Xylocaine 2% Jelly) 0 ml TOP ASDIRECTED [facility] Last Admin: 08/19/18 13:23 Dose: 1 applic Melatonin (Melatonin) 3 mg PO BEDTIME PRN PRN Reason: Insomnia Last Admin: 08/19/18 21:20 Dose: 3 mg Methocarbamol (Robaxin) 1,000 mg PO Q6H PRN PRN Reason: Pain Ondansetron HCl (Zofran Odt) 4 mg PO Q4H PRN PRN Reason: nausea, able to take PO Last Admin: 08/19/18 16:26 Dose: 4 mg Sodium Chloride (Saline Flush) 10 ml FLUSH ONETIME PRN PRN Reason: KEEP VEIN OPEN Last Admin: 08/18/18 18:54 Dose: 10 ml Discontinued Medications Amlodipine Besylate (Norvasc) 5 mg PO DAILY [facility] Last Admin: 08/19/18 09:31 Dose: 5 mg Citalopram Hydrobromide (Celexa) 40 mg PO ONETIME ONE Stop: 08/19/18 14:01 Last Admin: 08/19/18 13:42 Dose: 40 mg Famotidine (Pepcid) 20 mg PO BID [facility] Last Admin: 08/19/18 09:44 Dose: 20 mg Hydralazine HCl (Apresoline) 10 mg IVPUSH ONETIME ONE Stop: 08/18/18 18:18 Last Admin: 08/18/18 18:37 Dose: 5 mg Hydralazine HCl (Apresoline) 10 mg IVPUSH ONETIME ONE Stop: 08/18/18 19:22 Last Admin: 08/18/18 19:26 Dose: 5 mg Sodium Chloride (Normal Saline) 1,000 mls @ 125 mls/hr IV ASDIRECTED [facility] Last Infusion: 08/19/18 09:11 Dose: Infused Sodium Chloride (Normal Saline) 100 mls @ 80 mls/hr IV ASDIRECTED [facility] Last Admin: 08/18/18 18:53 Dose: 80 mls/hr Nicardipine HCl 25 mg/ Sodium (Chloride) 260 mls @ 52 mls/hr IV TITRATE [facility]; Protocol Last Titration: 08/19/18 09:48 Dose: 0 mg/hr, 0 mls/hr Nicardipine HCl 25 mg/ Sodium (Chloride) 250 mls @ 50 mls/hr IV TITRATE [facility]; Protocol Potassium Chloride 10 meq/ (Premix) 100 mls @ 100 mls/hr IV Q1H [facility] Stop: 08/19/18 18:29 Last Admin: 08/19/18 19:55 Dose: 100 mls/hr Iohexol (Omnipaque) 100 ml IVPUSH ONETIME ONE Stop: 08/18/18 17:58 Last Admin: 08/18/18 18:53 Dose: 100 ml Morphine Sulfate (Morphine) 2 mg IVPUSH ONETIME ONE Stop: 08/18/18 17:59 Last Admin: 08/18/18 18:06 Dose: Not Given Morphine Sulfate (Morphine) 4 mg IV ONETIME ONE Stop: 08/18/18 18:02 Last Admin: 08/18/18 18:04 Dose: 2 mg Potassium Chloride (Klor-Con M20) 40 meq PO ONETIME ONE Stop: 08/20/18 09:31 Last Admin: 08/20/18 10:14 Dose: 40 meq - Exam General: Reports: Alert, Oriented Lungs: Reports: Clear to Auscultation, Normal Respiratory Effort Cardiovascular: Reports: Regular Rate, Regular Rhythm GI/Abdominal Exam: Normal Bowel Sounds, Soft, Non-Tender, No Distention Extremities: Normal Inspection, Non-Tender Neurological: Reports: No New Focal Deficit Psy/Mental Status: Reports: Alert, Normal Affect, Normal Mood
[2018-08-20] MEDS ORDERED: Citalopram 20 MG Tab PO SCH (21:00)
== END 2018-08-20 14:19 | disposition home or self-care (01) | DRG 305 ==
LOC: JD.ED 16:39 → JD.ICU 20:03
PROVIDERS: ADMIT Family Medicine; ATTEND Family Medicine
DX: I16.0 Hypertensive urgency (principal); D61.818 Other pancytopenia; I72.8 Aneurysm of other specified arteries; R91.8 Other nonspecific abnormal finding of lung field; N17.9 Acute kidney failure, unspecified; N39.0 Urinary tract infection, site not specified; G89.29 Other chronic pain; F41.9 Anxiety disorder, unspecified; F32.9 Major depressive disorder, single episode, unspecified; I71.4 Abdominal aortic aneurysm, without rupture; F41.8 Other specified anxiety disorders; R91.1 Solitary pulmonary nodule; B95.2 Enterococcus as the cause of diseases classified elsewhere; E78.00 Pure hypercholesterolemia, unspecified; R32 Unspecified urinary incontinence; M81.0 Age-related osteoporosis without current pathological fracture; M19.90 Unspecified osteoarthritis, unspecified site; E03.9 Hypothyroidism, unspecified; L30.9 Dermatitis, unspecified; E89.2 Postprocedural hypoparathyroidism; H54.7 Unspecified visual loss; F17.210 Nicotine dependence, cigarettes, uncomplicated; K64.9 Unspecified hemorrhoids; R06.02 Shortness of breath; M54.9 Dorsalgia, unspecified; Z87.442 Personal history of urinary calculi; Z88.2 Allergy status to sulfonamides; Z88.8 Allergy status to other drugs, medicaments and biological substances; Z79.82 Long term (current) use of aspirin; Z79.890 Hormone replacement therapy; Z79.899 Other long term (current) drug therapy; Z90.710 Acquired absence of both cervix and uterus
CPT/HCPCS: 36415; 71045; 71275; 74177; 80053; 84484; 85007; 85027; 85379; 85610; 85730; 93005; 96361; 96365; 96375; 96376; 99285; J0360 ×3; J2270; J7030; J7040; J7050; Q9967; 81001; 83735; 84443; 85025; 87086; 87088; 87186; 97116-GP; 97140-GP; 97162-GP; 97165-GO; A9270-GY; J3480